=== PATIENT | female | born 1935 | race Caucasian/White ===

== ENCOUNTER 2017-05-30 13:39 | Inpatient (IN) ==
[2017-05-30 14:31] LABS: Apearance,Urine CLEAR (Clear); Bilirubin,Urine Negative (Negative); Blood, Urine Negative (Negative); Glucose,Urine (UA) Negative (Negative); Ketones,Urine Negative (Negative); Nitrite,Urine Negative (Negative); Protein,Urine Negative; RBC,Urine <1 /HPF (0-4); Squamous Epithelial Cell,Urine Occasional /HPF (0-10); Urine Color Straw (Yellow); Urine Specific Gravity 1.005 (1.001-1.035); Urine Urobilinogen < 2.0 EU/DL (0.2-1.0); WBC,Urine <1 /HPF (0-6)
[2017-05-30] MEDS ORDERED: HYDROmorphone 2 MG/1 ML VIAL IM STA (14:43)
[2017-05-30] MEDS ORDERED: ONDANSETRON 4 MG/2 ML VIAL IM STA (14:44)
--- NOTE | 2017-05-30 14:52 | Emergency Department Note ---
Arrival <Rylee Parsons - Last Filed: 05/30/17 18:38> - Arrival ED Nursing Triage Note: HX OF CHRONIC BACK PAIN-HAD MRI ON TUESDAY-STATES IS TO F /U WITH NEUROSURGEON-C/O PAIN TO LOWER BACK RADIATING DOWN RLE-STATES PAIN HAS WORSENED OVER LAST FEW DAYS Mode of Arrival: Stretcher Limitations: No Limitations Source: Patient, RN Notes Reviewed <Falguni Espinosa - Last Filed: 05/31/17 01:39> - Arrival Chief Complaint: Back Stated Complaint: BACK PAIN Time Seen by Provider: 05/30/17 14:02 - History of Present Illness HPI Narrative: -81-year-old white female presents to ED with CC of: back pain, x past few days for worsening pain. Has history of chronic back pain. Denies recent injury. Saw Dr. Armijo about 1 week ago. She had an MRI last , and is being referred to a neurosurgeon. Denies Incontinence, fever, saddle parasthesia. Denies Hx of AAA, Hx of Cancer, Immunosuppresion, IV drug use, prolonged use of corticosteroids, unexplained fever, unexplained weight loss, Sees Pain Treatment: no PCP: Dr. Armijo PMHx: HTN, CAD, pacemaker, hypothroidism, eye problems (Falguni Espinosa) Allergies/Adverse Reactions: Allergies Allergy/AdvReac Type Severity Reaction Status Date / Time simvastatin AdvReac Intermediate Muscle Pain Verified 03/21/17 08:50 Home Medications: Home Medications Medication Instructions Recorded Confirmed Type Aspirin [Ecotrin] 81 mg PO QAM 03/21/15 05/30/17 History Cranberry Conc/C/Bacill Coag 1 each PO QAM 03/21/15 05/30/17 History [Cranberry Tablet] Fish Oil/Dha/Epa [Fish Oil 1,200 1 each PO QAM 03/21/15 05/30/17 History mg Fish Oil] Flaxseed Oil 1,000 mg PO QAM 03/21/15 05/30/17 History Flecainide Acetate 50 mg PO Q12H 03/21/15 05/30/17 History Gabapentin 300 mg PO TID 03/21/15 05/30/17 History Gluc/Dwain-MSM#1/C/Mariano/Magdiel/Bor 1 each PO QAM 03/21/15 05/30/17 History [Osteo Bi-Flex Caplet] Hydralazine HCl 100 mg PO BID 03/21/15 05/30/17 History Levothyroxine Tab [Synthroid Tab] 50 mcg PO DAILY@0700 03/21/15 05/30/17 History Multivit-Min/FA/Lycopene/Lut 1 each PO QAM 03/21/15 05/30/17 History [Centrum Silver Tablet] Multivitamin (Ocuvite) [Ocuvite] 1 tablet PO QAM 03/21/15 05/30/17 History Torsemide 40 mg PO QAM 03/21/15 05/30/17 History cloNIDine TAB [Catapres Tab] 0.1 mg PO BEDTIME 03/21/15 05/30/17 History Latanoprost [Latanoprost 0.005 % 1 drop BOTH EYES BEDTIME 06/18/16 05/30/17 History Oph Soln] Loratadine Tab [Claritin Tab] 10 mg PO QAM PRN 06/18/16 05/30/17 History Potassium Chloride 10 meq PO BEDTIME 04/03/17 05/30/17 History Cyclobenzaprine [Flexeril] 10 mg PO TID PRN 05/30/17 05/30/17 History Glucosamine/D3/Boswellia Orquidea 1 each PO QAM 05/30/17 05/30/17 History [Osteo Bi-Flex Tablet] Hydrocodone/Acetaminophen [[place] 1 each PO Q4H PRN 05/30/17 05/30/17 History 10-325 Tablet] Pantoprazole Sodium 40 mg PO BEDTIME 05/30/17 05/30/17 History Review of System - Review of System 12 point system: reviewed and no additional remarkable complaints except as stated - Review of System Musculoskeletal: Present: as per HPI, lower back pain <Falguni Espinosa - Last Filed: 05/31/17 01:39> Medical,Surgical,& Family Hx - Medical History Cardio: History of: Cardiac Dysrhythmia (Takes Flecanide), CAD, Hypertension, Pacemaker (left), Cardiovascular Problems (Addiction Professional Dr. Mcintosh) Neurology: History of: Peripheral Neuropathy No history of: Seizures HEENT: History of: Eye Problem (Glasses; Increase Pressure in Eyes Trying to prevent Glaucoma), Dental Problems (Caps) No history of: Glaucoma Endocrine: History of: Thyroid Disorder Respiratory: History of: Asthma No history of: Pneumonia (Hx Pneum Vac), Respiratory Problems (Flu Vac 2016/ 2017 Season) Gastrointestinal: History of: Bowel Obstruction, Hemorrhoids, Polyps Musculoskeletal: History of: Back/Neck Problems, Musculoskeletal Problems ( Arthritis) Other: History of: Cancer (Skin Cancer), Skin Problems (Hx Skin cancers removed) No history of: Anesthesia Reactions - Surgical History Cardiac Surgeries: Sugical HX of: Cardiac Surgery (Pacemaker) HEENT Surgeries: Surgical HX of: Eye Surgery (cataract surgery, implants) Abdominal Surgeries: Surgical HX of: Appendectomy, Colonoscopy, EGD Reproductive Surgeries: Surgical HX of;: Hysterectomy (Complete) Patient denies;: Genitourinary Surgery Orthopedic Surgeries: Surgical HX of;: Spinal Surgery (Neck and Low Back Surgery ) - Family History Family History: Reports;: Family Cancer (mother father), Family Stroke (father) Comment Only: Family Heart Disease (mother father), Family Hypertension ( father) - Social History Smoking Status: Never smoker <Falguni Espinosa - Last Filed: 05/31/17 01:39> Exam <Rylee Parsons - Last Filed: 05/30/17 18:38> <Falguni Espinosa - Last Filed: 05/31/17 01:39> Physical Examination: General General appearance: alert, in no apparent distress - Head Head exam: Present: atraumatic, normocephalic - Eye Eye exam: Present: normal appearance, PERRL - Neck Neck exam: Present: normal inspection, full ROM - Chest Chest inspection: Present: normal inspection, symmetric chest wall rise - Respiratory Respiratory exam: Present: normal lung sounds bilaterally. Absent: accessory muscle use, rales, rhonchi, wheezes - Cardiovascular Cardiovascular exam: Present: regular rate, normal rhythm, normal heart sounds - Abdominal Exam Abdominal exam: Present: soft, normal bowel sounds. Absent: masses, tenderness - Extremities Exam Extremities exam: Present: normal inspection, bilateral lower extremeties limited ROM due to pain, normal capillary refill. Absent: pedal edema, joint swelling, tenderness - Back Exam Back exam: Present: normal inspection, tenderness lumbar area, paraspinal tenderness on R, positive straight leg raise R/L - Neurological Exam Neurological exam: Present: alert, oriented X3, 4/5 strength in legs, bilaterally, sensation to light touch present in legs bilaterally, DTR's 2+ bilaterally (Falguni Espinosa) Vital Signs: Vital Signs Temperature 96.8 F L 05/30/17 19:30 Pulse Rate 65 05/30/17 23:00 Respiratory Rate 10 L 05/31/17 00:56 Blood Pressure 113/33 05/30/17 23:00 O2 Sat by Pulse Oximetry 100 05/30/17 23:00 Course <Rylee Parsons - Last Filed: 05/30/17 18:38> <Falguni Espinosa - Last Filed: 05/31/17 01:39> Course Narrative: 1430: Nurse asked to call Dr. Armijo's office for current status of appt. with neurosurgeon. They have not sent information yet, so no appointment has been made. 1440: MRI results in computer that were done last week: Impression: 1. Levoscoliotic curve present. 2. Degenerative marrow signal changes 3. Multilevel degenerative disc disease. Component of spinal canal stenosis present the L4-5 level with associated bulging disc and facet arthropathy 4. Facet arthropathy and some distortion of the thecal sac and narrowing at the L2-3 level 5. Bulging and/or protrusion with extrusion at L1-2 of disc and extension of protrusion posterior to the L2 vertebral body with resultant spinal canal stenosis present. 6. Disc desiccation throughout the lumbosacral spine. 7. Multiple cysts present within the kidneys Due to severity of patient's disease, will attempt IM analgesic and steroid and hopefully get her comfortable enough to discharge home until she can see neurosurgeon. [employer] search reveals that she has prescription for [place] written by Dr. Armijo last week. She stated during history and physical that she was not getting much relief from that. 1530: In room to check on patient. Awake, alert, oriented. Patient states the pain shot has not helped. Friend at bedside. Patient and friend requesting possible admission to hospital or transfer to [facility]. Spoke to hospitalist, who was in unit, about patient and possibility of admission. Will reevaluate, but anticipate contacting B for possible transfer if she still feels she cannot return home. 1558: horse stud worker into room for evaluation of patient home situation. She immediately requested assistance. 1600: Went into room and found patient pulseless and apneic. Friend, still at bedside, states "I thought she was just asleep." Code called and CPR started. See Code Record for specifics. Patient transferred to main ER for further stabilization and treatment under care of Dr. Parsons. (Falguni Espinosa) - Reevaluation(s) Reevaluation #1: spoke with hospitalist who will see pt and admit to icu. was called to nonurgent (Rylee Parsons) Results - Labs CBC & BMP: 05/30/17 16:15 05/30/17 16:15 Lab Results: I have reviewed the patients labs <Rylee Parsons - Last Filed: 05/30/17 18:38> - Labs CBC & BMP: 05/30/17 16:15 05/30/17 16:15 <Falguni Espinosa - Last Filed: 05/31/17 01:39> Disposition <Rylee Parsons - Last Filed: 05/30/17 18:38> Time of Disposition: 16:10 (To main ER) <Falguni Espinosa - Last Filed: 05/31/17 01:39> Clinical Impression: Cardiac arrest Disposition: Still a Patient
[2017-05-30] MEDS ORDERED: HYDROmorphone 2 MG/1 ML VIAL ONE (15:00)
[2017-05-30] MEDS ORDERED: ONDANSETRON 4 MG/2 ML VIAL ONE (15:00)
[2017-05-30] MEDS ORDERED: DEXAMETHASONE 4 MG/1 ML VIAL IM STA (15:03)
[2017-05-30] MEDS ORDERED: methylPREDNISolone ACETATE 40 MG/1 ML VIAL IM STA (15:03)
[2017-05-30] MEDS ORDERED: methylPREDNISolone ACETATE 40 MG/1 ML VIAL ONE (15:07)
[2017-05-30] MEDS ORDERED: DEXAMETHASONE 4 MG/1 ML VIAL ONE (15:07)
[2017-05-30] MEDS ORDERED: NALOXONE 0.4 MG/ML VIAL ONE (16:00)
[2017-05-30] MEDS ORDERED: EPINEPHrine 1 MG/ML VIAL ONE (16:00)
[2017-05-30 16:31] LABS: Basophils # 0.1 10*3/uL (0.0-0.2); Basophils % 0.6 % (0.0-0.8); Eosinophils # 0.2 10*3/uL (0.0-0.87); Eosinophils % 1.4 % (0.00-10.9); Hematocrit 41.8 VOL% (35.7-47.0); Hemoglobin 13.7 GM/DL (12.0-16.0); Immature Granulocytes % 2.2 %; Immature Granulocytes Absolute 0.32 #; Lymphocytes # 8.5 10*3/uL (1.4-4.0); Lymphocytes % 59.2 % (21.3-54.2); Mean Corpuscular HGB Conc 32.8 GM/DL (32-36); Mean Corpuscular Hemoglobin 32 PG (27-34); Mean Corpuscular Volume 96.1 FL (87-102); Mean Platelet Volume 10.6 FL (9.6-12.0); Monocytes # 0.8 10*3/uL (0.11-0.8); Monocytes % 5.2 % (1.7-12.7); NRBC # 0.04 10*3/uL; Neutrophils # 4.5 10*3/uL (1.4-7.4); Neutrophils % 31.4 % (38.7-73.9); Platelet Count 217 T/CUMM (130-400); Red Blood Count 4.35 MC/CUMM (3.8-5.5); Red Cell Distribution Width 13.7 % (9.3-17.3); White Blood Count 14.3 T/CUMM (4-12)
[2017-05-30 16:32] LABS: Apearance,Urine CLEAR (Clear); Bilirubin,Urine Negative (Negative); Blood, Urine Negative (Negative); Glucose,Urine (UA) Negative (Negative); Hyaline Casts,Urine 1 /LPF (0-3); Ketones,Urine Negative (Negative); Nitrite,Urine Negative (Negative); Protein,Urine Negative; RBC,Urine <1 /HPF (0-4); Urine Color Straw (Yellow); Urine Specific Gravity 1.004 (1.001-1.035); Urine Urobilinogen < 2.0 EU/DL (0.2-1.0)
[2017-05-30 16:39] LABS: D-Dimer 2.2 MG/L FEU; INR 1.1; PT Patient Result 11.5 SECS; Partial Thromboplastin Time 27.7 SECS (0-40)
[2017-05-30 16:52] LABS: Alanine Aminotransferase 370 U/L (13-56); Albumin 3.5 G/DL (3.4-5.0); Alkaline Phosphatase 64 U/L (45-117); Aspartate Amino Transferase 406 U/L (0-37); Blood Urea Nitrogen 32 MG/DL (7-18); Calcium 9.2 MG/DL (8.5-10.1); Glucose 166 MG/DL (74-106); Osmolality,Calculated 289.4 MOS/KG (273-304); Potassium 3.5 MMOL/L (3.5-5.1); Sodium 140 MMOL/L (136-145); Total Protein 7.2 G/DL (6.4-8.3)
[2017-05-30 16:53] LABS: Troponin I Only 0.223 NG/ML (0.00-0.045)
--- NOTE | 2017-05-30 16:54 | CT Report ---
History: Cardiac arrest Date: 05/30/2017 Study: CT chest with pulmonary embolus technique Comparison exam: No previous similar Spiral CT sections were obtained through the lungs following the IV administration of 80 mL of Omnipaque 350 without immediate complication. Multiplanar reconstruction images are also evaluated. The CT exam was performed using one or more of the following dose reduction techniques: Automated exposure control, adjustment of the mA and/or kV according to patient size, or use of iterative reconstruction technique. There is no discrete filling defect within the pulmonary arterial tree to suggest acute pulmonary embolic disease. There is no pericardial or pleural effusion. There is no obvious mediastinal mass or mediastinal lymphadenopathy. A left subclavian transvenous pacemaker with multiple leads is in place, generally intact and generally well positioned. There is some mild dependent atelectasis in the lungs. There is some minimal hazy left lower lobe infiltrate/edema. The endotracheal tube is well-positioned with its tip superior to the sony. There is no obvious acute abnormality of the upper abdomen. There is mild to moderate thoracic spondylosis. Impression: No evidence of acute pulmonary embolic disease. Mild hazy left lower lobe edema/infiltrate PROCEDURE INTERPRETED AT [facility] DEPARTMENT OF RADIOLOGY Final Report Signed by: Dr. Yvonne Hamilton
[2017-05-30] MEDS ORDERED: SODIUM CHLORIDE 0.9% 1,000 ML IV STA (16:56)
[2017-05-30 17:29] LABS: Free T4 (Free Thyroxine) 1.49 NG/DL (0.76-1.46); Thyroid Stimulating Hormone 9.49 uIU/ml (0.358-3.74)
[2017-05-30 17:31] LABS: Eosinophils 1 % (0-10); Lymphocytes 62 % (20-55); Nucleated Red Blood Cells 1 (0-5); Platelet Estimate Normal; Segmented Neutrophils 33 % (50-85); Total Cells Counted 100
[2017-05-30] MEDS ORDERED: LEVOFLOXACIN INJ 500 MG in PREMIX 1 EACH IV STA (17:36)
[2017-05-30] MEDS ORDERED: LEVOFLOXACIN INJ 150 ML IV ONE (17:54)
[2017-05-30] MEDS ORDERED: LEVOFLOXACIN INJ 0 ML IV ONE (18:01)
[2017-05-30] MEDS ORDERED: ALBUTEROL 2.5 MG/3 ML NEB RESP TX PRN (19:10)
[2017-05-30] MEDS ORDERED: ONDANSETRON 4 MG/2 ML VIAL IV PRN (19:10)
[2017-05-30] MEDS: PANTOPRAZOLE 40 MG VIAL IV SCH (19:48)
[2017-05-30] MEDS: ENOXAPARIN 30 MG/0.3 ML SYRINGE SUBCUT SCH (19:48)
--- NOTE | 2017-05-30 19:48 | Hospitalist History & Physical ---
Assessment and Plan (1) Status post code Status: Acute Current Visit: Yes (2) Respiratory arrest Status: Acute Current Visit: Yes (3) Thyroid disorder Status: Acute Current Visit: Yes (4) Chronic back pain Status: Acute Current Visit: Yes (5) Cardiac arrest Status: Acute Assessment and plan: Patient is status post cardiac pulmonary arrest. I suspect respiratory arrest preceded cardiac arrest. She is not making any spontaneous movements. My concern is that we has significant brain damage. We will consult both pulmonary in cardiology for this patient. I am going to trend cardiac enzymes. I have ordered a CT scan of her head without contrast. Going to put her on antibiotics for a pneumonia. Will reevaluate patient in the morning and adjust plans appropriate Current Visit: Yes History of Present Illness Chief complaint: Status post code History of present illness: Ms. Regalado is a 81 year old female with past medical history significant for pacemaker placement, thyroid disorder and possible chronic kidney disease who was in her normal state of health until approximately 1 month ago. For the past month patient's been dealing with bad excruciating back pain. She sees Dr. Armijo in clinic. She reportedly had an MRI last week. She was going to have a appointment set up with neurosurgery in [place]. She came in today with intractable back pain. She has been having trouble with the least amount of movement. She was triaged to fast track. Patient received some steroids and pain medicine. It seemed like she was resting. But when they checked on her social services manager it was noted that she was not breathing. A code was called. Patient was given to rounds of epi and some Narcan. She was pulseless and breathless. A pulse returned after treatment. She was coded approximately 15 minutes. She has made no spontaneous movement since then. And she does not withdraw from pain. I was consulted to admit her. Home Medications Medication Instructions Recorded Confirmed Type Aspirin [Ecotrin] 81 mg PO QAM 03/21/15 05/30/17 History Cranberry Conc/C/Bacill Coag 1 each PO QAM 03/21/15 05/30/17 History [Cranberry Tablet] Fish Oil/Dha/Epa [Fish Oil 1,200 1 each PO QAM 03/21/15 05/30/17 History mg Fish Oil] Flaxseed Oil 1,000 mg PO QAM 03/21/15 05/30/17 History Flecainide Acetate 50 mg PO Q12H 03/21/15 05/30/17 History Gabapentin 300 mg PO TID 03/21/15 05/30/17 History Gluc/Dwain-MSM#1/C/Mariano/Magdiel/Bor 1 each PO QAM 03/21/15 05/30/17 History [Osteo Bi-Flex Caplet] Hydralazine HCl 100 mg PO BID 03/21/15 05/30/17 History Levothyroxine Tab [Synthroid Tab] 50 mcg PO DAILY@0700 03/21/15 05/30/17 History Multivit-Min/FA/Lycopene/Lut 1 each PO QAM 03/21/15 05/30/17 History [Centrum Silver Tablet] Multivitamin (Ocuvite) [Ocuvite] 1 tablet PO QAM 03/21/15 05/30/17 History Torsemide 40 mg PO QAM 03/21/15 05/30/17 History cloNIDine TAB [Catapres Tab] 0.1 mg PO BEDTIME 03/21/15 05/30/17 History Latanoprost [Latanoprost 0.005 % 1 drop BOTH EYES BEDTIME 06/18/16 05/30/17 History Oph Soln] Loratadine Tab [Claritin Tab] 10 mg PO QAM PRN 06/18/16 05/30/17 History Potassium Chloride 10 meq PO BEDTIME 04/03/17 05/30/17 History Cyclobenzaprine [Flexeril] 10 mg PO TID PRN 05/30/17 05/30/17 History Glucosamine/D3/Boswellia Orquidea 1 each PO QAM 05/30/17 05/30/17 History [Osteo Bi-Flex Tablet] Hydrocodone/Acetaminophen [[place] 1 each PO Q4H PRN 05/30/17 05/30/17 History 10-325 Tablet] Pantoprazole Sodium 40 mg PO BEDTIME 05/30/17 05/30/17 History Allergies Allergy/AdvReac Type Severity Reaction Status Date / Time simvastatin AdvReac Intermediate Muscle Pain Verified 03/21/17 08:50 Medical,Surgical,& Family Hx - Medical History Cardio: History of: Cardiac Dysrhythmia (Takes Flecanide), CAD, Hypertension, Pacemaker (left), Cardiovascular Problems (Fruit Bar Maker Dr. Mcintosh) Neurology: History of: Peripheral Neuropathy No history of: Seizures HEENT: History of: Eye Problem (Glasses; Increase Pressure in Eyes Trying to prevent Glaucoma), Dental Problems (Caps) No history of: Glaucoma Endocrine: History of: Thyroid Disorder Respiratory: History of: Asthma No history of: Pneumonia (Hx Pneum Vac), Respiratory Problems (Flu Vac 2016/ 2016 Season) Gastrointestinal: History of: Bowel Obstruction, Hemorrhoids, Polyps Musculoskeletal: History of: Back/Neck Problems, Musculoskeletal Problems ( Arthritis) Other: History of: Cancer (Skin Cancer), Skin Problems (Hx Skin cancers removed) No history of: Anesthesia Reactions - Surgical History Cardiac Surgeries: Sugical HX of: Cardiac Surgery (Pacemaker) HEENT Surgeries: Surgical HX of: Eye Surgery (cataract surgery, implants) Abdominal Surgeries: Surgical HX of: Appendectomy, Colonoscopy, EGD Reproductive Surgeries: Surgical HX of;: Hysterectomy (Complete) Patient denies;: Genitourinary Surgery Orthopedic Surgeries: Surgical HX of;: Spinal Surgery (Neck and Low Back Surgery ) - Family History Family History: Reports;: Family Cancer (mother father), Family Stroke (father) Comment Only: Family Heart Disease (mother father), Family Hypertension ( father) - Social History Smoking Status: Never smoker Frequency of Alcohol Use: None Type of Drug Use: None ROS unobtainable: due to endotracheal tube Exam - Constitutional Vitals: Period Temp Pulse Resp BP Sys/Hoff Pulse Ox Last 24 Hr 98.3 F 68 12-20 165/59 96 General appearance: normal weight - Head Head exam: Present: normal inspection - Eye Pupils: Present: JULIO C (Sluggish) - ENT ENT exam: Present: other (ET tube in place) - Neck Neck exam: Present: normal inspection - Respiratory Respiratory exam: Present: clear to auscultation bilaterally - Cardiovascular Cardiovascular exam: Present: regular rate and rhythm - GI/Abdominal GI/Abdominal exam: Present: normal bowel sounds - Extremities Exam Extremities exam: Present: normal inspection - Back Exam Back exam: Present: normal inspection Results - Labs CBC & BMP: 05/30/17 16:15 05/30/17 16:15
[2017-05-30] MEDS: hydrALAZINE 20 MG/1 ML VIAL IV PRN (19:49)
--- NOTE | 2017-05-30 19:50 | EKG Report ---
Stationary ECG Study [facility] ER Test Date: 05/30/2017 4:23:41 PM Pat Name: VASILE MOORE Department: Room: 115 Gender: F Director Of Audiology: : 1935 Requested by: Rylee Parsons Order Number: [id number] Lakisha MD: ALEJANDRO CABRERA Intervals [place] Rate: 95 P: 999 MD: 0 QRS: -81 QRSD: 187 T: 44 QT: 465 QTc: 518 Interpretive Statements ELECTRONIC VENTRICULAR PACEMAKER Electronically Signed On 06-03-17 15:28:52 CDT by ALEJANDRO CABRERA [email or web address]
[2017-05-30] MEDS: SODIUM CHLORIDE 0.9% 1,000 ML IV SCH (19:51)
[2017-05-30 20:06] LABS: ABG Base Excess 1.2 MMOL/L (-2.5-2.5); ABG HCO3 22.2 MMOL/L (20-26); ABG Oxygen Saturation 99.1 % (95-100); ABG PCO2 25.7 MM HG (35-48); ABG PH 7.555 (7.35-7.45); ABG PO2 246.8 MM HG (80-95); Allen Test Positive; Pt O2 Delivery Device Ventilator
[2017-05-30] MEDS: cefTRIAXone 1,000 MG in SODIUM CHLORIDE 0.9% 100 ML IV SCH (20:15)
[2017-05-30] MEDS: AZITHROMYCIN INJ 500 MG in SODIUM CHLORIDE 0.9% 250 ML IV SCH (20:19)
[2017-05-30] MEDS ORDERED: LORazepam 2 MG/1 ML VIAL IV ONE (21:21)
[2017-05-31] MEDS: LORazepam 2 MG/1 ML VIAL IV PRN ×5 (00:14→07:48)
[2017-05-31 03:10] LABS: Allen Test Positive; Pt O2 Delivery Device Ventilator
[2017-05-31 03:11] LABS: ABG Base Excess -1.1 MMOL/L (-2.5-2.5); ABG HCO3 22.6 MMOL/L (20-26); ABG Oxygen Saturation 98.4 % (95-100); ABG PCO2 34.8 MM HG (35-48); ABG PH 7.431 (7.35-7.45); ABG PO2 142.2 MM HG (80-95); ABG TCO2 23.7 MMOL/L (23-27)
[2017-05-31 04:31] LABS: Albumin 3.2 G/DL (3.4-5.0); Bilirubin,Total 1.3 MG/DL (0.2-1.0); Calcium 8.8 MG/DL (8.5-10.1); Potassium 4.1 MMOL/L (3.5-5.1); Total Protein 6.5 G/DL (6.4-8.3)
[2017-05-31 04:32] LABS: Basophils % 0.1 % (0.0-0.8); Hematocrit 37.8 VOL% (35.7-47.0); Hemoglobin 12.4 GM/DL (12.0-16.0); Immature Granulocytes % 1.2 %; Immature Granulocytes Absolute 0.28 #; Lymphocytes # 0.5 10*3/uL (1.4-4.0); Mean Corpuscular HGB Conc 32.8 GM/DL (32-36); Mean Corpuscular Hemoglobin 32 PG (27-34); Mean Corpuscular Volume 96.4 FL (87-102); Mean Platelet Volume 10.7 FL (9.6-12.0); Monocytes % 4.3 % (1.7-12.7); Neutrophils # 20.8 10*3/uL (1.4-7.4); Neutrophils % 92.4 % (38.7-73.9); Platelet Count 185 T/CUMM (130-400); Red Blood Count 3.92 MC/CUMM (3.8-5.5); White Blood Count 22.5 T/CUMM (4-12)
[2017-05-31 05:43] LABS: Lymphocytes 2 % (20-55); Platelet Estimate Adequate; Segmented Neutrophils 94 % (50-85); Total Cells Counted 100
[2017-05-31] MEDS: SODIUM CHLORIDE 0.9% 1,000 ML IV SCH ×2 (06:38→17:06)
--- NOTE | 2017-05-31 06:42 | CT Report ---
History is unresponsive Comparison 04/16/2013 There is mild ventricular prominence out of proportion to the amount of atrophy There are mild patchy white matter low densities present without acute intracranial hemorrhage or mass effects seen No acute cortical stroke identified. Small calcifications in the left elkin are similar on the prior study. Impression: 1. Mild interval progression of ventricular prominence out of proportion to the amount of atrophy. Central atrophy versus NPH 2. mild patchy nonspecific white matter low densities most frequently associated with sequelae of microvascular disease The CT exam was performed using one or more of the following dose reduction techniques: Automated exposure control, adjustment of the mA and/or kV according to patient size, or use of iterative reconstruction technique. PROCEDURE INTERPRETED AT [facility] DEPARTMENT OF RADIOLOGY Final Report Signed by: Dr. Barb Martinez
--- NOTE | 2017-05-31 07:35 | XRay Report ---
History is ventilator management Comparison 05/20/1705/30/2017 The ET tube tip is at T4. Pacemaker present with mild cardiomegaly. There has been development of mildly increasing consolidation with a component of volume loss in the retrocardiac left lung base Right lung is clear Impression: Worsening left lower lobe consolidation primarily felt to be atelectasis. PROCEDURE INTERPRETED AT [facility] DEPARTMENT OF RADIOLOGY Final Report Signed by: Dr. Barb Martinez
--- NOTE | 2017-05-31 09:27 | Cardiology Consult Note ---
<Patti Carpio E - Last Filed: 05/31/17 08:59> Assessment and Plan - Time spent with patient Time spent with patient: Greater than 30 minutes (1) PAF (paroxysmal atrial fibrillation) Status: Chronic Assessment and plan: SEE PLAN OF CARE LISTED BELOW Current Visit: Yes (2) CKD (chronic kidney disease) stage 4, GFR 15-29 ml/min Status: Chronic Assessment and plan: SEE PLAN OF CARE LISTED BELOW Current Visit: Yes (3) Pacemaker Status: Chronic Assessment and plan: SEE PLAN OF CARE LISTED BELOW Current Visit: Yes (4) Dyslipidemia Status: Chronic Assessment and plan: SEE PLAN OF CARE LISTED BELOW Current Visit: Yes (5) Hypertension Status: Chronic Assessment and plan: SEE PLAN OF CARE LISTED BELOW Current Visit: Yes (6) Cardiac arrest Status: Acute Assessment and plan: SEE PLAN OF CARE LISTED BELOW Current Visit: Yes (7) Status post code Status: Acute Assessment and plan: SEE PLAN OF CARE LISTED BELOW Current Visit: Yes (8) Respiratory arrest Status: Acute Assessment and plan: SEE PLAN OF CARE LISTED BELOW Current Visit: Yes (9) Thyroid disorder Status: Acute Current Visit: Yes (10) Chronic back pain Status: Chronic Assessment and plan: SEE PLAN OF CARE LISTED BELOW Current Visit: Yes History of Present Illness - Data of Consult Patient: known to practice within the last 3 years Consult date: 05/31/17 Requesting Physician: Dougie Hood - Consult Narrative Reason for consult: respiratory/cardiac arrest History of present illness: MICRO PHOTOGRAPHER: DR. MCINTOSH Patient is being seen in the ICU. Patient is intubated and unresponsive, there is no family at the bedside. The majority of this information is taken from medical records and staff. Ms. Regalado, 81WF, routinely followed by Dr. Mcintosh. She was last seen in cardiology clinic April 05, 2017. Risk factors include: age,, hypertension, dyslipidemia, sedentary lifestyle. History of sick sinus syndrome now S/P [employer] PPM August 15, [address] Anand. History of PAF for which she takes Flecainide for rhythm control, ECASA for stroke prevention. Lexiscan cardiac stress test June 29, 2016: EF 62%, low risk scan. Apparently, patient sought medical advice for excruciating back pain. After receiving sedation, she experienced a suspected respiratory arrest preceding cardiac arrest. She was noted to be pulseless and breathless, CPR and ACLS started immediately. She was coded approximately 15 minutes. A pulse returned. There has been no spontaneous movements however she appears to be having seizures. After receiving she was transitioned to the ICU. CT chest reveals mild, hazy left lower lobe edema versus infiltrate. CT head reveals no acute stroke. EKG does not reveal STEMI. Troponin elevated at 0.2-3-1.08, expected after a wrist requiring CPR. We will continue to trend these, following EKG. Echocardiogram has been ordered. EEG ordered, neurology consulted. No arrhythmia has been noted on telemetry. Will further discuss with Dr. Edmonds and await additional recommendations. ASSESSMENT/PLAN: 1. RESPIRATORY/CARDIAC ARREST - continue current plan of care 2. ANOXIC BRAIN INJURY - Neurology has been consulted 3. POSSIBLE SEIZURES - awaiting input from Neuro. 4. ELEVATED TROPONIN - not unexpected after events. Expect to increase throughout the hospitalization. Also, given CKD, may be contributing to elevation. Not a candidate for invasive work-up given the neurological condition. Should patient's neurological status improve, may consider further work-up. Echo ordered. 5. PAF - NSR during stay. On Flecanide. LFTs increasing. May consider holding Flecanide if LFTs continue to increase. 6. UNDERLYING HYPERTENSION - will incorporate meds as able. CC: Digna Burgos MD - Home Medications and Allergies Home Medications: Home Medications Medication Instructions Recorded Confirmed Type Aspirin [Ecotrin] 81 mg PO QAM 03/21/15 05/30/17 History Cranberry Conc/C/Bacill Coag 1 each PO QAM 03/21/15 05/30/17 History [Cranberry Tablet] Fish Oil/Dha/Epa [Fish Oil 1,200 1 each PO QAM 03/21/15 05/30/17 History mg Fish Oil] Flaxseed Oil 1,000 mg PO QAM 03/21/15 05/30/17 History Flecainide Acetate 50 mg PO Q12H 03/21/15 05/30/17 History Gabapentin 300 mg PO TID 03/21/15 05/30/17 History Gluc/Dwain-MSM#1/C/Mariano/Magdiel/Bor 1 each PO QAM 03/21/15 05/30/17 History [Osteo Bi-Flex Caplet] Hydralazine HCl 100 mg PO BID 03/21/15 05/30/17 History Levothyroxine Tab [Synthroid Tab] 50 mcg PO DAILY@0700 03/21/15 05/30/17 History Multivit-Min/FA/Lycopene/Lut 1 each PO QAM 03/21/15 05/30/17 History [Centrum Silver Tablet] Multivitamin (Ocuvite) [Ocuvite] 1 tablet PO QAM 03/21/15 05/30/17 History Torsemide 40 mg PO QAM 03/21/15 05/30/17 History cloNIDine TAB [Catapres Tab] 0.1 mg PO BEDTIME 03/21/15 05/30/17 History Latanoprost [Latanoprost 0.005 % 1 drop BOTH EYES BEDTIME 06/18/16 05/30/17 History Oph Soln] Loratadine Tab [Claritin Tab] 10 mg PO QAM PRN 06/18/16 05/30/17 History Potassium Chloride 10 meq PO BEDTIME 04/03/17 05/30/17 History Cyclobenzaprine [Flexeril] 10 mg PO TID PRN 05/30/17 05/30/17 History Glucosamine/D3/Boswellia Orquidea 1 each PO QAM 05/30/17 05/30/17 History [Osteo Bi-Flex Tablet] Hydrocodone/Acetaminophen [Alleene 1 each PO Q4H PRN 05/30/17 05/30/17 History 10-325 Tablet] Pantoprazole Sodium 40 mg PO BEDTIME 05/30/17 05/30/17 History Allergies/Adverse Reactions: Allergies Allergy/AdvReac Type Severity Reaction Status Date / Time simvastatin AdvReac Intermediate Muscle Pain Verified 03/21/17 08:50 ROS unobtainable: due to endotracheal tube, due to mental status Medical,Surgical,& Family Hx - Medical History Cardio: History of: Cardiac Dysrhythmia (Takes Flecanide), Hypertension, Pacemaker (left), Cardiovascular Problems (Music Manager Dr. Mcintosh) Neurology: History of: Peripheral Neuropathy No history of: Seizures HEENT: History of: Eye Problem (Glasses; Increase Pressure in Eyes Trying to prevent Glaucoma), Dental Problems (Caps) No history of: Glaucoma Endocrine: History of: Thyroid Disorder Respiratory: History of: Asthma No history of: Pneumonia (Hx Pneum Vac), Respiratory Problems (Flu Vac 2016/ 2017 Season) Gastrointestinal: History of: Bowel Obstruction, Hemorrhoids, Polyps Musculoskeletal: History of: Back/Neck Problems, Musculoskeletal Problems ( Arthritis) Other: History of: Cancer (Skin Cancer), Skin Problems (Hx Skin cancers removed) No history of: Anesthesia Reactions - Surgical History Cardiac Surgeries: Sugical HX of: Cardiac Surgery (Pacemaker) HEENT Surgeries: Surgical HX of: Eye Surgery (cataract surgery, implants) Abdominal Surgeries: Surgical HX of: Appendectomy, Colonoscopy, EGD Reproductive Surgeries: Surgical HX of;: Hysterectomy (Complete) Patient denies;: Genitourinary Surgery Orthopedic Surgeries: Surgical HX of;: Spinal Surgery (Neck and Low Back Surgery ) - Family History Family History: Reports;: Family Cancer (mother father), Family Stroke (father) Comment Only: Family Heart Disease (mother father), Family Hypertension ( father) - Social History Smoking Status: Never smoker Frequency of Alcohol Use: None Type of Drug Use: None Physical Examination Vital Signs Temp Pulse Resp BP Pulse Ox 98.3 F 68 20 165/59 96 05/30/17 13:39 05/30/17 13:39 05/30/17 13:39 05/30/17 13:39 05/30/17 13:39 General: [Intubated without purposeful movement ] [Appears comfortable.] HEENT: [Normocephalic, atraumatic. Mucous membranes moist. No jaundice noted. Conjunctiva moist and clear, sclerae anicteric] Neck: No obvious JVD/HJR, no thyromegaly or lymphadenopathy noted. Cardiac: [Regular rate and rhythm.] [No obvious murmur rub or gallop.] Lungs: [Coarse sounds throughout without accessory muscle use to assist the respiratory pattern.] Symmetrical chest wall movements noted Abdomen: Soft, bowel sounds hypoactive. Nondistended. No abdominal bruit or thrill noted. No masses noted. Musculoskeletal: No fluid collection. Decreased range of motion is noted. Extremities: No clubbing, cyanosis noted. [ No edema noted.] Upper extremity pulses 2+. Lower extremity pulses 2+. Capillary refill less than 3 seconds. Skin: No unusual lesions or rashes. No skin breakdown appreciated. Neuro: Does not respond to aggressive stimuli. Seizure-like activity noted. Result/EKG - Labs CBC & BMP: 05/31/17 03:23 05/31/17 03:23 Lab Results: I have reviewed the past 24 hour labs Labs: Laboratory Results - last 24 hr 05/30/17 05/30/17 05/30/17 14:06 16:15 16:15 WBC 14.3 H RBC 4.35 Hgb 13.7 Hct 41.8 MCV 96.1 MCH 32 MCHC 32.8 RDW 13.7 Plt Count 217 MPV 10.6 Neut % (Auto) 31.4 L Lymph % (Auto) 59.[address] [place] % (Auto) 5.2 Eos % (Auto) 1.4 Baso % (Auto) 0.6 Neut # (Auto) 4.5 Lymph # (Auto) 8.[address] [place] # (Auto) 0.8 Eos # (Auto) 0.2 Baso # (Auto) 0.1 Total Counted 100 Immature Gran % 2.2 Nucleated RBC % 0.3 Immature Gran # 0.32 Segmented Neutrophils 33 L Lymphocytes 62 H Monocytes 4 Eosinophils 1 Nucleated RBCs 1 Nucleated RBCs # 0.04 Platelet Estimate Normal Pappenheimer Bodies Morphology Comment INR 1.1 PT Patient/Control Mix 11.5 D-Dimer, Quantitative 2.2 Circ Anticoag PTT 27.7 ABG pH ABG pCO2 ABG pO2 ABG HCO3 ABG Total CO2 ABG O2 Saturation ABG Base Excess FiO2 Sodium Potassium Chloride Carbon Dioxide Anion Gap BUN Creatinine GFR Calculation BUN/Creatinine Ratio Glucose Calculated Osmolality Calcium Total Bilirubin AST ALT Alkaline Phosphatase Total Creatine Kinase CK-MB (CK-2) Troponin I B-Natriuretic Peptide Total Protein Albumin Globulin Albumin/Globulin Ratio Free T4 TSH 3rd Generation Urine Color Straw Urine Appearance Clear Urine pH 7.0 Ur Specific [place] 1.005 Urine Protein Negative Urine Glucose (UA) Negative Urine Ketones Negative Urine Blood Negative Urine Nitrate Negative Urine Bilirubin Negative Urine Urobilinogen < 2.0 H Urine Leukocytes Negative Urine RBC <1 Urine WBC <1 Ur Squamous Epith Cells Occasional Hyaline Casts Ur Culture Indicated? Not indicated 05/30/17 05/30/17 05/30/17 16:15 16:15 16:15 WBC RBC Hgb Hct MCV MCH MCHC RDW Plt Count MPV Neut % (Auto) Lymph % (Auto) [place] % (Auto) Eos % (Auto) Baso % (Auto) Neut # (Auto) Lymph # (Auto) [place] # (Auto) Eos # (Auto) Baso # (Auto) Total Counted Immature Gran % Nucleated RBC % Immature Gran # Segmented Neutrophils Lymphocytes Monocytes Eosinophils Nucleated RBCs Nucleated RBCs # Platelet Estimate Pappenheimer Bodies Morphology Comment INR PT Patient/Control Mix D-Dimer, Quantitative Circ Anticoag PTT ABG pH ABG pCO2 ABG pO2 ABG HCO3 ABG Total CO2 ABG O2 Saturation ABG Base Excess FiO2 Sodium 140 Potassium 3.5 Chloride 101 Carbon Dioxide 25 Anion Gap 17.5 H BUN 32 H Creatinine 2.40 H GFR Calculation 0 BUN/Creatinine Ratio 13.00 Glucose 166 H Calculated Osmolality 289.4 Calcium 9.2 Total Bilirubin 0.40 AST 406 H ALT 370 H Alkaline Phosphatase 64 Total Creatine Kinase 125 CK-MB (CK-2) 1.3 Troponin I 0.223 H B-Natriuretic Peptide 70 Total Protein 7.2 Albumin 3.5 Globulin 3.7 H Albumin/Globulin Ratio 0.9 L Free T4 1.49 H TSH 3rd Generation 9.490 H Urine Color Urine Appearance Urine pH Ur Specific [place] Urine Protein Urine Glucose (UA) Urine Ketones Urine Blood Urine Nitrate Urine Bilirubin Urine Urobilinogen Urine Leukocytes Urine RBC Urine WBC Ur Squamous Epith Cells Hyaline Casts Ur Culture Indicated? 05/30/17 05/30/17 05/31/17 16:23 20:00 01:58 WBC RBC Hgb Hct MCV MCH MCHC RDW Plt Count MPV Neut % (Auto) Lymph % (Auto) [place] % (Auto) Eos % (Auto) Baso % (Auto) Neut # (Auto) Lymph # (Auto) [place] # (Auto) Eos # (Auto) Baso # (Auto) Total Counted Immature Gran % Nucleated RBC % Immature Gran # Segmented Neutrophils Lymphocytes Monocytes Eosinophils Nucleated RBCs Nucleated RBCs # Platelet Estimate Pappenheimer Bodies Morphology Comment INR PT Patient/Control Mix D-Dimer, Quantitative Circ Anticoag PTT ABG pH 7.555 H ABG pCO2 25.7 L ABG pO2 246.8 H ABG HCO3 22.2 ABG Total CO2 23.0 ABG O2 Saturation 99.1 ABG Base Excess 1.2 FiO2 70.00 Sodium Potassium Chloride Carbon Dioxide Anion Gap BUN Creatinine GFR Calculation BUN/Creatinine Ratio Glucose Calculated Osmolality Calcium Total Bilirubin AST ALT Alkaline Phosphatase Total Creatine Kinase 177 D CK-MB (CK-2) 3.8 H Troponin I 1.080 H D B-Natriuretic Peptide Total Protein Albumin Globulin Albumin/Globulin Ratio Free T4 TSH 3rd Generation Urine Color Straw Urine Appearance Clear Urine pH 7.0 Ur Specific [place] 1.004 Urine Protein Negative Urine Glucose (UA) Negative Urine Ketones Negative Urine Blood Negative Urine Nitrate Negative Urine Bilirubin Negative Urine Urobilinogen < 2.0 H Urine Leukocytes Negative Urine RBC <1 Urine WBC Ur Squamous Epith Cells Hyaline Casts 1 Ur Culture Indicated? Not indicated 05/31/17 05/31/17 05/31/17 03:00 03:23 03:23 WBC 22.5 H D RBC 3.92 Hgb 12.4 Hct 37.8 MCV 96.4 MCH 32 MCHC 32.8 RDW 14.0 Plt Count 185 MPV 10.7 Neut % (Auto) 92.4 H Lymph % (Auto) 2.[address] % (Auto) 4.3 Eos % (Auto) 0.0 Baso % (Auto) 0.1 Neut # (Auto) 20.8 H Lymph # (Auto) 0.[address] [place] # (Auto) 1.0 H Eos # (Auto) 0.0 Baso # (Auto) 0.0 Total Counted 100 Immature Gran % 1.2 Nucleated RBC % 0.0 Immature Gran # 0.28 Segmented Neutrophils 94 H Lymphocytes 2 L Monocytes 4 Eosinophils Nucleated RBCs Nucleated RBCs # 0.00 Platelet Estimate Adequate Pappenheimer Bodies Morphology Comment INR PT Patient/Control Mix D-Dimer, Quantitative Circ Anticoag PTT ABG pH 7.431 ABG pCO2 34.8 L ABG pO2 142.2 H ABG HCO3 22.6 ABG Total CO2 23.7 ABG O2 Saturation 98.4 ABG Base Excess -1.1 FiO2 70.00 Sodium 143 Potassium 4.1 Chloride 107 Carbon Dioxide 20 L Anion Gap 20.1 H BUN 33 H Creatinine 2.00 H GFR Calculation 23 BUN/Creatinine Ratio 16.00 Glucose 124 H Calculated Osmolality 292.0 Calcium 8.8 Total Bilirubin 1.30 H AST 408 H ALT 390 H Alkaline Phosphatase 51 Total Creatine Kinase CK-MB (CK-2) Troponin I B-Natriuretic Peptide Total Protein 6.5 Albumin 3.2 L Globulin 3.3 Albumin/Globulin Ratio 0.9 L Free T4 TSH 3rd Generation Urine Color Urine Appearance Urine pH Ur Specific [place] Urine Protein Urine Glucose (UA) Urine Ketones Urine Blood Urine Nitrate Urine Bilirubin Urine Urobilinogen Urine Leukocytes Urine RBC Urine WBC Ur Squamous Epith Cells Hyaline Casts Ur Culture Indicated? - Diagnostic Findings Procedure: Chest x-ray: report reviewed by me, CT - chest: report reviewed by me , CT: report reviewed by me (CT abdomen) - EKG EKG results: interpreted by me EKG shows: sinus rhythm (Pacing) <Jovan Edmonds - Last Filed: 05/31/17 10:58> History of Present Illness - Consult Narrative History of present illness: Ms. Regalado is a 81 year old female CC: Digna Burgos MD Physical Examination Vital Signs Temp Pulse Resp BP Pulse Ox 98.3 F 68 20 165/59 96 05/30/17 13:39 05/30/17 13:39 05/30/17 13:39 05/30/17 13:39 05/30/17 13:39 Result/EKG - Labs CBC & BMP: 05/31/17 03:23 05/31/17 03:23 Labs: Laboratory Results - last 24 hr 05/30/17 05/30/17 05/30/17 14:06 16:15 16:15 WBC 14.3 H RBC 4.35 Hgb 13.7 Hct 41.8 MCV 96.1 MCH 32 MCHC 32.8 RDW 13.7 Plt Count 217 MPV 10.6 Neut % (Auto) 31.4 L Lymph % (Auto) 59.[address] [place] % (Auto) 5.2 Eos % (Auto) 1.4 Baso % (Auto) 0.6 Neut # (Auto) 4.5 Lymph # (Auto) 8.[address] [place] # (Auto) 0.8 Eos # (Auto) 0.2 Baso # (Auto) 0.1 Total Counted 100 Immature Gran % 2.2 Nucleated RBC % 0.3 Immature Gran # 0.32 Segmented Neutrophils 33 L Lymphocytes 62 H Monocytes 4 Eosinophils 1 Nucleated RBCs 1 Nucleated RBCs # 0.04 Platelet Estimate Normal Pappenheimer Bodies Morphology Comment INR 1.1 PT Patient/Control Mix 11.5 D-Dimer, Quantitative 2.2 Circ Anticoag PTT 27.7 ABG pH ABG pCO2 ABG pO2 ABG HCO3 ABG Total CO2 ABG O2 Saturation ABG Base Excess FiO2 Sodium Potassium Chloride Carbon Dioxide Anion Gap BUN Creatinine GFR Calculation BUN/Creatinine Ratio Glucose Calculated Osmolality Calcium Total Bilirubin AST ALT Alkaline Phosphatase Total Creatine Kinase CK-MB (CK-2) Troponin I B-Natriuretic Peptide Total Protein Albumin Globulin Albumin/Globulin Ratio Free T4 TSH 3rd Generation Urine Color Straw Urine Appearance Clear Urine pH 7.0 Ur Specific [place] 1.005 Urine Protein Negative Urine Glucose (UA) Negative Urine Ketones Negative Urine Blood Negative Urine Nitrate Negative Urine Bilirubin Negative Urine Urobilinogen < 2.0 H Urine Leukocytes Negative Urine RBC <1 Urine WBC <1 Ur Squamous Epith Cells Occasional Hyaline Casts Ur Culture Indicated? Not indicated 05/30/17 05/30/17 05/30/17 16:15 16:15 16:15 WBC RBC Hgb Hct MCV MCH MCHC RDW Plt Count MPV Neut % (Auto) Lymph % (Auto) [place] % (Auto) Eos % (Auto) Baso % (Auto) Neut # (Auto) Lymph # (Auto) [place] # (Auto) Eos # (Auto) Baso # (Auto) Total Counted Immature Gran % Nucleated RBC % Immature Gran # Segmented Neutrophils Lymphocytes Monocytes Eosinophils Nucleated RBCs Nucleated RBCs # Platelet Estimate Pappenheimer Bodies Morphology Comment INR PT Patient/Control Mix D-Dimer, Quantitative Circ Anticoag PTT ABG pH ABG pCO2 ABG pO2 ABG HCO3 ABG Total CO2 ABG O2 Saturation ABG Base Excess FiO2 Sodium 140 Potassium 3.5 Chloride 101 Carbon Dioxide 25 Anion Gap 17.5 H BUN 32 H Creatinine 2.40 H GFR Calculation 0 BUN/Creatinine Ratio 13.00 Glucose 166 H Calculated Osmolality 289.4 Calcium 9.2 Total Bilirubin 0.40 AST 406 H ALT 370 H Alkaline Phosphatase 64 Total Creatine Kinase 125 CK-MB (CK-2) 1.3 Troponin I 0.223 H B-Natriuretic Peptide 70 Total Protein 7.2 Albumin 3.5 Globulin 3.7 H Albumin/Globulin Ratio 0.9 L Free T4 1.49 H TSH 3rd Generation 9.490 H Urine Color Urine Appearance Urine pH Ur Specific [place] Urine Protein Urine Glucose (UA) Urine Ketones Urine Blood Urine Nitrate Urine Bilirubin Urine Urobilinogen Urine Leukocytes Urine RBC Urine WBC Ur Squamous Epith Cells Hyaline Casts Ur Culture Indicated? 05/30/17 05/30/17 05/31/17 16:23 20:00 01:58 WBC RBC Hgb Hct MCV MCH MCHC RDW Plt Count MPV Neut % (Auto) Lymph % (Auto) [place] % (Auto) Eos % (Auto) Baso % (Auto) Neut # (Auto) Lymph # (Auto) [place] # (Auto) Eos # (Auto) Baso # (Auto) Total Counted Immature Gran % Nucleated RBC % Immature Gran # Segmented Neutrophils Lymphocytes Monocytes Eosinophils Nucleated RBCs Nucleated RBCs # Platelet Estimate Pappenheimer Bodies Morphology Comment INR PT Patient/Control Mix D-Dimer, Quantitative Circ Anticoag PTT ABG pH 7.555 H ABG pCO2 25.7 L ABG pO2 246.8 H ABG HCO3 22.2 ABG Total CO2 23.0 ABG O2 Saturation 99.1 ABG Base Excess 1.2 FiO2 70.00 Sodium Potassium Chloride Carbon Dioxide Anion Gap BUN Creatinine GFR Calculation BUN/Creatinine Ratio Glucose Calculated Osmolality Calcium Total Bilirubin AST ALT Alkaline Phosphatase Total Creatine Kinase 177 D CK-MB (CK-2) 3.8 H Troponin I 1.080 H D B-Natriuretic Peptide Total Protein Albumin Globulin Albumin/Globulin Ratio Free T4 TSH 3rd Generation Urine Color Straw Urine Appearance Clear Urine pH 7.0 Ur Specific [place] 1.004 Urine Protein Negative Urine Glucose (UA) Negative Urine Ketones Negative Urine Blood Negative Urine Nitrate Negative Urine Bilirubin Negative Urine Urobilinogen < 2.0 H Urine Leukocytes Negative Urine RBC <1 Urine WBC Ur Squamous Epith Cells Hyaline Casts 1 Ur Culture Indicated? Not indicated 05/31/17 05/31/17 05/31/17 03:00 03:23 03:23 WBC 22.5 H D RBC 3.92 Hgb 12.4 Hct 37.8 MCV 96.4 MCH 32 MCHC 32.8 RDW 14.0 Plt Count 185 MPV 10.7 Neut % (Auto) 92.4 H Lymph % (Auto) 2.[address] % (Auto) 4.3 Eos % (Auto) 0.0 Baso % (Auto) 0.1 Neut # (Auto) 20.8 H Lymph # (Auto) 0.[address] [place] # (Auto) 1.0 H Eos # (Auto) 0.0 Baso # (Auto) 0.0 Total Counted 100 Immature Gran % 1.2 Nucleated RBC % 0.0 Immature Gran # 0.28 Segmented Neutrophils 94 H Lymphocytes 2 L Monocytes 4 Eosinophils Nucleated RBCs Nucleated RBCs # 0.00 Platelet Estimate Adequate Pappenheimer Bodies Morphology Comment INR PT Patient/Control Mix D-Dimer, Quantitative Circ Anticoag PTT ABG pH 7.431 ABG pCO2 34.8 L ABG pO2 142.2 H ABG HCO3 22.6 ABG Total CO2 23.7 ABG O2 Saturation 98.4 ABG Base Excess -1.1 FiO2 70.00 Sodium 143 Potassium 4.1 Chloride 107 Carbon Dioxide 20 L Anion Gap 20.1 H BUN 33 H Creatinine 2.00 H GFR Calculation 23 BUN/Creatinine Ratio 16.00 Glucose 124 H Calculated Osmolality 292.0 Calcium 8.8 Total Bilirubin 1.30 H AST 408 H ALT 390 H Alkaline Phosphatase 51 Total Creatine Kinase CK-MB (CK-2) Troponin I B-Natriuretic Peptide Total Protein 6.5 Albumin 3.2 L Globulin 3.3 Albumin/Globulin Ratio 0.9 L Free T4 TSH 3rd Generation Urine Color Urine Appearance Urine pH Ur Specific [place] Urine Protein Urine Glucose (UA) Urine Ketones Urine Blood Urine Nitrate Urine Bilirubin Urine Urobilinogen Urine Leukocytes Urine RBC Urine WBC Ur Squamous Epith Cells Hyaline Casts Ur Culture Indicated?
[2017-05-31] MEDS: PROPOFOL 1,000 MG/100 ML BOTTLE IV SCH (10:21)
[2017-05-31] MEDS ORDERED: GLUCAGON 1 MG VIAL IM PRN (10:27)
[2017-05-31] MEDS ORDERED: DEXTROSE 50% 25 GM/50 ML VIAL IV PRN (10:27)
--- NOTE | 2017-05-31 10:58 | ECHO Report ---
Eliza Regalado Exam Date: 05/31/2017 09:50 Referring Physician: Technologist: Shelbi Arellano LRHUGO Age: 81 Ht (in): 64 Wt (lb): 155 Gender: F Exam Location: [facility] Echo Indications: s/p resp arrest, pacemaker BP: 150 / 55 HR: 78 Rhythm: sinus arrhythmia Technical Quality: Pt. on Vent. IMPRESSIONS Normal chamber sizes 1-2+ concentric LVH Normal hyperdynamic LV systolic function with ejection fraction estimated be 65-70% without segmental wall motion reality Aortic sclerosis without stenosis 1+ mitral and, aortic regurgitation; 1-2+ tricuspid regurgitation with RVSP 21 mmHg plus RAP Pacing wire noted in the right heart MEASUREMENTS (Male / Female) Normal Values 2D ECHO LV Diastolic Diameter PLAX 3.7 cm 4.2 - 5.9 / 3.9 - 5.3 cm LV Systolic Diameter PLAX 2.0 cm LV Fractional Shortening PLAX 46.2 % IVS Diastolic Thickness 1.5 cm 0.6 - 1.0 / 0.6 - 0.9 cm LVPW Diastolic Thickness 1.3 cm 0.6 - 1.0 / 0.6 - 0.9 cm RV Internal Dim ED PLAX 2.2 cm Aortic Root Diameter 2.7 cm LA Systolic Diameter LX 3.4 cm 3.0 - 4.0 / 2.7 - 3.8 cm DOPPLER TR Peak Velocity 227.0 cm/s TR Peak Gradient 20.6 mmHg FINDINGS Left Ventricle Normal left ventricular cavity size. Mild concentric left ventricular hypertrophy with diastolic dysfunction. Left ventricular ejection fraction is estimated at 55-60 %. Right Ventricle Mildly increased right ventricular size. Right Atrium Normal right atrial size. Left Atrium Normal left atrial size. Mitral Valve Mild mitral valve sclerosis. Aortic Valve Mild aortic valve sclerosis. Trace to mild aortic valve regurgitation. Tricuspid Valve Morphologically normal tricuspid valve. Trace to mild tricuspid valve regurgitation. Tricuspid regurgitation velocities suggest a PAP of 20.6 mmHg + RAP. Pulmonic Valve Morphologically normal pulmonic valve. Pericardium No pericardial effusion. Aorta Normal size aortic root and proximal ascending aorta. Jovan Edmonds (Electronically Signed) Final Date: 31 May 2017 10:57
[2017-05-31] MEDS: DEXAMETHASONE 4 MG/1 ML VIAL IV SCH ×2 (11:04→17:52)
--- NOTE | 2017-05-31 11:16 | Pulmonology Consult Note ---
History of Present Illness Chief complaint: Ventilator. Cardiopulmonary arrest. Back pain History of present illness: Ms. Regalado is a 81 year old white female whom I been asked see in pulmonary consultation for evaluation and management of mechanical ventilation. This patient is usually followed by Dr. Niko Armijo. This patient came to the emergency room last night with back pain she has a known herniated disc and she is waiting for pain medicine consultation. She was given 1 mg of Dilaudid and apparently she had a respiratory arrest. See admit note for additional detail. Patient required intubation mechanical ventilation. The patient is unarousable she has repetitive seizures. Patient is unable to give a review of systems therefore the review of systems is negative. Allergy. Simvastatin peer Past history. Asthma. Chronic renal insufficiency. High blood pressure. Hyperlipidemia. Hypothyroidism. Peripheral edema. Muscle weakness. Previous back surgery. Past history of a bladder tack. Hysterectomy. Next surgery. Thyroid surgery. Family history. Positive for heart attacks. Positive for heart surgery. Positive for high blood pressure and breast cancer Social history. Patient never used tobacco or alcohol. She is she is followed by Dr. Niko Armijo Chest x-ray. 05/30/2017. Slight hyperinflation. No heart failure. No lymph. Left pulmonary artery appears to be enlarged. Pacer is present over the left chest. I do not see any wire fractures. Chest x-ray. 05/31/2017. Left lower lung infiltrate with atelectasisNo heart failure. Slight increased markings inferior to the right ABGs on mechanical ventilation FiO2 of 70% shows a pH 7.43, T06 CO2 of 34.8. PO2 of 142 and a bicarb of 22.3. Lab. Electrolytes are normal. Creatinine is dropped from 2.4-2.00 with a BUN of 33 alkaline Andrew is normal with a marked elevation of transaminases and a total bilirubin of 1.30. Total protein is 6.5 albumin is low at 3.2 globulin is normal at 3.3. Admit white count was 14,300 with 59 segs today's value is 22 ,500 with 92% segs. Platelets are 185,000. TSH is markedly elevated at 9.490 free T4 is also elevated at 1.49. Urinalysis shows no evidence of infection Microbiology. No results. Physical exam. Vital signs. See below. No fever. Neurologic. Patient is having repetitive small seizures. She does not respond to pain. I see no spontaneous movement other than what is probably early posturing of the lower and upper extremities. Face. Symmetrical. No edema of the lips or tongue. Neck. Symmetrical. No mass. No meningismus. Thyroid was not palpated Lymphatics. No submandibular cervical supraclavicular clavicular epitrochlear adenopathy Chest. Mild large airway congestion and a few inspiratory squeaks at the left base. Heart. Slightly lateral PMI no gallop Abdomen. Nondistended. Only rare bowel sounds. Lower extremities. No evidence of deep venous thrombophlebitis Skin of the face and hands show no cancerous infectious lesions skin of the lower legs show chronic venous stasis changes. No other areas of skin were examined. Arterial. Carotid upstroke was failure I did not hear any bruits upper extremity pulses are palpable lower extremity pulses were nonpalpable. No evidence of lower extremity ischemia Venous exam of the neck and upper extremities normal lower extremities show evidence of previous chronic venous stasis. The remainder of the physical exam is noncontributory. Impression. 1. Cardiopulmonary arrest requiring intubation mechanical ventilation. Etiology is undetermined. 2. Recent severe back pain secondary to herniated nucleus pulposus 3. Hypoxemia out of proportion to what I would expect 4. Acute left lower lung infiltrate post intubation. Suspect that this will be an aspiration pneumonia with the potential for bacterial superinfection 5. Probable acute central nervous system hypoxic and an ischemic injury with resultant status epilepticus 6. Chronic renal failure. 7. History of asthma 8. History of high blood pressure 9. Hypothyroidism. 10. Hyperlipidemia. 11. See past history 12. Abnormal liver function Plan. 1. Mechanical ventilator weaning and physical therapy protocols 2. Sputum for Gram stain culture and sensitivity 3. Elective fiberoptic bronchoscopy for probable aspiration. The acute damage has been done. I will wait until the patient is a little more stable 4. Daily chest x-ray, ABGs and lab. 5. We need to repeat free T4 in a day or so. At that point we need to decide about replacement 6. Later on when needed pain medicine consultation of this patient survives 7. EEG 8. Neurology consultation 9. Proton pump inhibitor protocol 10. Deep venous thrombophlebitis prevention protocol 11. Agree with present antibiotics 12. Decadron. See orders 13. Dr. Digna Burgos and I have reviewed the case and we have coordinated our intermediate Medications Medication Instructions Recorded Confirmed Type Aspirin [Ecotrin] 81 mg PO QAM 03/21/15 05/30/17 History Cranberry Conc/C/Bacill Coag 1 each PO QAM 03/21/15 05/30/17 History [Cranberry Tablet] Fish Oil/Dha/Epa [Fish Oil 1,200 1 each PO QAM 03/21/15 05/30/17 History mg Fish Oil] Flaxseed Oil 1,000 mg PO QAM 03/21/15 05/30/17 History Flecainide Acetate 50 mg PO Q12H 03/21/15 05/30/17 History Gabapentin 300 mg PO TID 03/21/15 05/30/17 History Gluc/Dwain-MSM#1/C/Mariano/Magdiel/Bor 1 each PO QAM 03/21/15 05/30/17 History [Osteo Bi-Flex Caplet] Hydralazine HCl 100 mg PO BID 03/21/15 05/30/17 History Levothyroxine Tab [Synthroid Tab] 50 mcg PO DAILY@0700 03/21/15 05/30/17 History Multivit-Min/FA/Lycopene/Lut 1 each PO QAM 03/21/15 05/30/17 History [Centrum Silver Tablet] Multivitamin (Ocuvite) [Ocuvite] 1 tablet PO QAM 03/21/15 05/30/17 History Torsemide 40 mg PO QAM 03/21/15 05/30/17 History cloNIDine TAB [Catapres Tab] 0.1 mg PO BEDTIME 03/21/15 05/30/17 History Latanoprost [Latanoprost 0.005 % 1 drop BOTH EYES BEDTIME 06/18/16 05/30/17 History Oph Soln] Loratadine Tab [Claritin Tab] 10 mg PO QAM PRN 06/18/16 05/30/17 History Potassium Chloride 10 meq PO BEDTIME 04/03/17 05/30/17 History Cyclobenzaprine [Flexeril] 10 mg PO TID PRN 05/30/17 05/30/17 History Glucosamine/D3/Boswellia Orquidea 1 each PO QAM 05/30/17 05/30/17 History [Osteo Bi-Flex Tablet] Hydrocodone/Acetaminophen [[place] 1 each PO Q4H PRN 05/30/17 05/30/17 History 10-325 Tablet] Pantoprazole Sodium 40 mg PO BEDTIME 05/30/17 05/30/17 History Allergies Allergy/AdvReac Type Severity Reaction Status Date / Time simvastatin AdvReac Intermediate Muscle Pain Verified 03/21/17 08:50 Exam (Pulmonay) H&P - Constitutional Vitals: Period Temp Pulse Resp BP Sys/Hoff Pulse Ox Last 24 Hr 96.8 F-98.3 F 60-70 10-20 105-200/33-84 96-100 Medical,Surgical,& Family Hx - Medical History Cardio: History of: Cardiac Dysrhythmia (Takes Flecanide), CAD, Hypertension, Pacemaker (left), Cardiovascular Problems (Crime Specialist Dr. Mcintosh) Neurology: History of: Peripheral Neuropathy No history of: Seizures HEENT: History of: Eye Problem (Glasses; Increase Pressure in Eyes Trying to prevent Glaucoma), Dental Problems (Caps) No history of: Glaucoma Endocrine: History of: Thyroid Disorder Respiratory: History of: Asthma No history of: Pneumonia (Hx Pneum Vac), Respiratory Problems (Flu Vac 2015/ 2016 Season) Gastrointestinal: History of: Bowel Obstruction, Hemorrhoids, Polyps Musculoskeletal: History of: Back/Neck Problems, Musculoskeletal Problems ( Arthritis) Other: History of: Cancer (Skin Cancer), Skin Problems (Hx Skin cancers removed) No history of: Anesthesia Reactions - Surgical History Cardiac Surgeries: Sugical HX of: Cardiac Surgery (Pacemaker) HEENT Surgeries: Surgical HX of: Eye Surgery (cataract surgery, implants) Abdominal Surgeries: Surgical HX of: Appendectomy, Colonoscopy, EGD Reproductive Surgeries: Surgical HX of;: Hysterectomy (Complete) Patient denies;: Genitourinary Surgery Orthopedic Surgeries: Surgical HX of;: Spinal Surgery (Neck and Low Back Surgery ) - Family History Family History: Reports;: Family Cancer (mother father), Family Stroke (father) Comment Only: Family Heart Disease (mother father), Family Hypertension ( father) - Social History Smoking Status: Never smoker Frequency of Alcohol Use: None Type of Drug Use: None Results - Labs CBC & BMP: 05/31/17 03:23 05/31/17 03:23
--- NOTE | 2017-05-31 14:49 | Hospitalist Progress Note ---
Assessment and Plan (1) Anoxic brain injury Status: Acute Assessment and plan: Dr. Thrasher consulted. EEG pending. Current Visit: Yes (2) Seizure Status: Acute Assessment and plan: EEG, keppra and diprivan Current Visit: Yes (3) LLL pneumonia Status: Acute Assessment and plan: cont rocephin and azithromycin, Dr. Garcia to bronch Current Visit: Yes (4) Respiratory arrest Status: Acute Assessment and plan: respiratory arrest in the ER, now intubated Current Visit: Yes (5) Cardiac arrest Status: Acute Assessment and plan: secondary to her respiratory arrest, mild elevation of troponins due to cpr, no evidence of acute CA Current Visit: Yes (6) Hypothyroidism Status: Acute Assessment and plan: cont levothyroxine Current Visit: Yes (7) Chronic back pain Status: Chronic Assessment and plan: hold all pain meds Current Visit: Yes (8) PAF (paroxysmal atrial fibrillation) Status: Chronic Assessment and plan: cont flecanide Current Visit: Yes (9) CKD (chronic kidney disease) stage 4, GFR 15-29 ml/min Status: Chronic Assessment and plan: cont to monitor Current Visit: Yes (10) Hypertension Status: Chronic Assessment and plan: controlled Current Visit: Yes Hospitalist: Subjective Interval history: Had a family conference with the [place] family including her sisters, daughter and . I told them I was concerned that she would not recover due to her lack of neurological response. Patient has suffered anoxic brain injury. Patient is still breathing over the vent. An EEG was done earlier this morning because she look like she was having seizures. Family says no history of seizures in the past. Patient was then started on Keppra and the seizures stopped. Patient was also placed on diprivan for sedation which also helps to control the seizures. Dr. Thrasher is been consulted for his opinion. Patient had a respiratory arrest which caused a cardiac arrest. Her troponins were mildly elevated secondary to CPR. No evidence to support an CA. Dr. Edmonds from cardiology was consulted and has seen and examined her. Her echocardiogram showed an EF of 65%. She has a history of paroxysmal atrial fibrillation. Exam - Constitutional Vitals: Period Temp Pulse Resp BP Sys/Hoff Pulse Ox Last 24 Hr 96.8 F-98.2 F 60-70 10-18 105-200/33-84 100-100 Exam: Heart Rate-[tachy] Lungs-[course] GI-[+bs soft, NT] Ext-[no edema] Neuro pupils sluggish to light, no spontaneous movement, no ability to understand shown, no response to painful stimuli psych unable to evaluate. General [no acute distress] Results - Labs CBC & BMP: 05/31/17 03:23 05/31/17 03:23 Lab Results: I have reviewed the past 24 hour labs - Diagnostic Findings Procedure: Chest x-ray: report reviewed by me (Left lower lobe pneumonia), CT - chest: report reviewed by me (No evidence of pulmonary emboli but does have left lower lobe pneumonia.), CT: report reviewed by me (Head CT shows progression of ventricular prominence out of proportion to the amount of atrophy. Consider NPH), Ultrasound: report reviewed by me (ef 65%, with 2+ tricuspid regurg and PAP of 20)
[2017-05-31] MEDS: FLECAINIDE 50 MG TABLET PO SCH (15:24)
--- NOTE | 2017-05-31 16:22 | Neurology Consult Note ---
History of Present Illness History of present illness: Patient is unable to provide me any history. History basically obtained from the chart. Ms. Regalado is a 81 year old lady with past medical history significant for pacemaker placement, thyroid disorder and possible chronic kidney disease who was in her normal state of health until approximately 1 month ago. For the past month patient's been dealing with bad excruciating back pain. She sees Dr. Armijo in clinic. She was going to have a appointment set up with neurosurgery in [place]. She came in yesterday with intractable back pain. She had been having trouble with the least amount of movement. She was triaged to fast track. Patient received some steroids and pain medicine ( Dilauded). It seemed like she was resting. But when they checked on her it was noted that she was not breathing. A code was called. Patient was given two rounds of epi and some Narcan. She was pulseless and breathless. A pulse returned after treatment. She was coded approximately 15 minutes. She has made no spontaneous movement since then. And she does not withdraw from pain. She has been having some jerking movements of the whole body off and on. This morning she was started on Keppra. EEG was performed which revealed generalized seizure activity and burst suppression pattern Home Medications Medication Instructions Recorded Confirmed Type Aspirin [Ecotrin] 81 mg PO QAM 03/21/15 05/30/17 History Cranberry Conc/C/Bacill Coag 1 each PO QAM 03/21/15 05/30/17 History [Cranberry Tablet] Fish Oil/Dha/Epa [Fish Oil 1,200 1 each PO QAM 03/21/15 05/30/17 History mg Fish Oil] Flaxseed Oil 1,000 mg PO QAM 03/21/15 05/30/17 History Flecainide Acetate 50 mg PO Q12H 03/21/15 05/30/17 History Gabapentin 300 mg PO TID 03/21/15 05/30/17 History Gluc/Dwain-MSM#1/C/Mariano/Magdiel/Bor 1 each PO QAM 03/21/15 05/30/17 History [Osteo Bi-Flex Caplet] Hydralazine HCl 100 mg PO BID 03/21/15 05/30/17 History Levothyroxine Tab [Synthroid Tab] 50 mcg PO DAILY@0700 03/21/15 05/30/17 History Multivit-Min/FA/Lycopene/Lut 1 each PO QAM 03/21/15 05/30/17 History [Centrum Silver Tablet] Multivitamin (Ocuvite) [Ocuvite] 1 tablet PO QAM 03/21/15 05/30/17 History Torsemide 40 mg PO QAM 03/21/15 05/30/17 History cloNIDine TAB [Catapres Tab] 0.1 mg PO BEDTIME 03/21/15 05/30/17 History Latanoprost [Latanoprost 0.005 % 1 drop BOTH EYES BEDTIME 06/18/16 05/30/17 History Oph Soln] Loratadine Tab [Claritin Tab] 10 mg PO QAM PRN 06/18/16 05/30/17 History Potassium Chloride 10 meq PO BEDTIME 04/03/17 05/30/17 History Cyclobenzaprine [Flexeril] 10 mg PO TID PRN 05/30/17 05/30/17 History Glucosamine/D3/Boswellia Orquidea 1 each PO QAM 05/30/17 05/30/17 History [Osteo Bi-Flex Tablet] Hydrocodone/Acetaminophen [[place] 1 each PO Q4H PRN 05/30/17 05/30/17 History 10-325 Tablet] Pantoprazole Sodium 40 mg PO BEDTIME 05/30/17 05/30/17 History Allergies Allergy/AdvReac Type Severity Reaction Status Date / Time simvastatin AdvReac Intermediate Muscle Pain Verified 03/21/17 08:50 ROS unobtainable: due to endotracheal tube, due to mental status Medical,Surgical,& Family Hx - Medical History Cardio: History of: Cardiac Dysrhythmia (Takes Flecanide), CAD, Hypertension, Pacemaker (left), Cardiovascular Problems (Automotive Technician Dr. Mcintosh) Neurology: History of: Peripheral Neuropathy No history of: Seizures HEENT: History of: Eye Problem (Glasses; Increase Pressure in Eyes Trying to prevent Glaucoma), Dental Problems (Caps) No history of: Glaucoma Endocrine: History of: Thyroid Disorder Respiratory: History of: Asthma No history of: Pneumonia (Hx Pneum Vac), Respiratory Problems (Flu Vac 2016/ 2017 Season) Gastrointestinal: History of: Bowel Obstruction, Hemorrhoids, Polyps Musculoskeletal: History of: Back/Neck Problems, Musculoskeletal Problems ( Arthritis) Other: History of: Cancer (Skin Cancer), Skin Problems (Hx Skin cancers removed) No history of: Anesthesia Reactions - Surgical History Cardiac Surgeries: Sugical HX of: Cardiac Surgery (Pacemaker) HEENT Surgeries: Surgical HX of: Eye Surgery (cataract surgery, implants) Abdominal Surgeries: Surgical HX of: Appendectomy, Colonoscopy, EGD Reproductive Surgeries: Surgical HX of;: Hysterectomy (Complete) Patient denies;: Genitourinary Surgery Orthopedic Surgeries: Surgical HX of;: Spinal Surgery (Neck and Low Back Surgery ) - Family History Family History: Reports;: Family Cancer (mother father), Family Stroke (father) Comment Only: Family Heart Disease (mother father), Family Hypertension ( father) - Social History Smoking Status: Never smoker Frequency of Alcohol Use: None Type of Drug Use: None Exam - Constitutional Vitals: Period Temp Pulse Resp BP Sys/Hoff Pulse Ox Last 24 Hr 96.8 F-98.2 F 60-70 10-18 105-200/33-84 100-100 Exam: GENERAL: Patient is in no acute distress. NECK: Neck is supple. There is no JVD. No carotid bruits present. No thyroid masses. CVS: First and second heart sounds are normal. There is no S3 present. Regular rate and rhythm. RESPIRATORY: Lungs are clear to auscultation without any rales or rhonchi. ABDOMEN: Soft and non-tender. Bowel sounds are present. There is no hepatosplenomegaly. EXT: There is no palpable edema. Peripheral pulses are present. Skin: No rashes Central Nervous system: General: Unresponsive Speech: None Comprehension: None on vent Facial expressions: Normal Cranial Nerves: Left pupil is dilated but reactive, right pupil is nonreactive but irregular could be surgical. Doll's head eye movements are negative. No facial asymmetry is seen Motor: Bulk and Tone is normal. Strength cannot be assessed Sensory: Cannot be assessed Reflexes: 1+ and symmetrical Cerebellar function: Cannot be assessed Toes: Equivocal Gait: Cannot be assessed Assessment: Hypoxic anoxic brain injury Status epilepticus Recommendations: Change Keppra to 500 mg IV every 8 Wean off of diprivan Given her age, prognosis is poor. Thank you for the consult Results - Labs CBC & BMP: 05/31/17 03:23 05/31/17 03:23
[2017-05-31] MEDS: cefTRIAXone 1,000 MG in SODIUM CHLORIDE 0.9% 100 ML IV SCH (18:30)
[2017-05-31] MEDS: ENOXAPARIN 30 MG/0.3 ML SYRINGE SUBCUT SCH (18:35)
[2017-05-31] MEDS: PANTOPRAZOLE 40 MG VIAL IV SCH (18:35)
[2017-05-31] MEDS: AZITHROMYCIN INJ 500 MG in SODIUM CHLORIDE 0.9% 250 ML IV SCH (18:54)
--- NOTE | 2017-05-31 20:09 | Electroencephalogram ---
HISTORY: An 81-year-old female with a history of seizures. EEG run for 30 minutes. INTRODUCTION: A digital EEG was performed using the standard 10/20 system of electrode placement wit h one channel of EKG monitoring. Photic stimulation is performed. DESCRIPTION OF RECORD: The background is very disorganized, consists of 2 to 3 hertz very low amplit ude bilaterally symmetrical rhythm. This record is remarkable for intermittent burst of generalized spike and wave discharges followed by suppression of 3 to 4 seconds. Photic stimulation does not rosario cit a driving response. Heart rate 60 beats per minute. IMPRESSION: ABNORMAL EEG DUE TO: 1. GENERALIZED SLOWING. 2. BURST SUPPRESSION PATTERN. CLINICAL CORRELATION: This record is supportive of severe encephalopathy, which could be secondary t o postictal state, posthypoxic state, metabolic disorder, diffuse [employer] insult, or increased intracrani al pressure. In addition, this EEG is supportive of severe encephalopathy as well as a status epilep ticus. Clinical correlation is suggested.
[2017-05-31] MEDS: LATANOPROST 0.005% OPH SOLN 2.5 ML BOTTLE BOTH EYES SCH (21:47)
[2017-06-01] MEDS: DEXAMETHASONE 4 MG/1 ML VIAL IV SCH ×5 (00:14→23:50)
[2017-06-01] MEDS: SODIUM CHLORIDE 0.9% 1,000 ML IV SCH ×2 (02:46→06:31)
[2017-06-01 03:31] LABS: ABG Base Excess -0.8 MMOL/L (-2.5-2.5); ABG HCO3 23.7 MMOL/L (20-26); ABG Oxygen Saturation 99.5 % (95-100); ABG PCO2 31.3 MM HG (35-48); ABG PH 7.459 (7.35-7.45); ABG TCO2 19.9 MMOL/L (23-27); Allen Test Positive; Pt O2 Delivery Device Ventilator
[2017-06-01] MEDS: PROPOFOL 1,000 MG/100 ML BOTTLE IV SCH ×2 (03:43→18:00)
[2017-06-01] MEDS: FLECAINIDE 50 MG TABLET PO SCH ×2 (04:21→14:45)
[2017-06-01 06:03] LABS: Calcium 8.7 MG/DL (8.5-10.1); Magnesium 2.4 MG/DL (1.8-2.4); Osmolality,Calculated 296.8 MOS/KG (273-304); Potassium 4.3 MMOL/L (3.5-5.1)
[2017-06-01 06:09] LABS: Calcium 8.7 MG/DL (8.5-10.1); Osmolality,Calculated 292.1 MOS/KG (273-304); Phosphorous 3.2 MG/DL (2.5-4.9); Potassium 4.3 MMOL/L (3.5-5.1)
[2017-06-01 07:00] LABS: Basophils % 0.1 % (0.0-0.8); Hematocrit 34.5 VOL% (35.7-47.0); Hemoglobin 11.6 GM/DL (12.0-16.0); Lymphocytes # 1.1 10*3/uL (1.4-4.0); Lymphocytes % 5.5 % (21.3-54.2); Mean Corpuscular HGB Conc 33.6 GM/DL (32-36); Mean Corpuscular Hemoglobin 32 PG (27-34); Mean Corpuscular Volume 93.8 FL (87-102); Mean Platelet Volume 10.5 FL (9.6-12.0); Monocytes # 0.7 10*3/uL (0.11-0.8); Monocytes % 3.5 % (1.7-12.7); Neutrophils # 17.8 10*3/uL (1.4-7.4); Neutrophils % 89.9 % (38.7-73.9); Platelet Count 172 T/CUMM (130-400); Red Blood Count 3.68 MC/CUMM (3.8-5.5); Red Cell Distribution Width 14.2 % (9.3-17.3); White Blood Count 19.7 T/CUMM (4-12)
[2017-06-01] MEDS ORDERED: LEVOTHYROXINE 50 MCG TABLET PO SCH (07:00)
--- NOTE | 2017-06-01 08:06 | XRay Report ---
Exam: XR chest 1V portable Indication: Intubated, ventilator Comparison study: Prior chest radiograph 05/31/2017 Findings: Endotracheal tube is in similar position. There is an esophagogastric tube now noted in place which terminates in the proximal stomach and should be advanced 8-10 cm for better positioning. Cardiac silhouette is mildly enlarged, similar prior. Minimal patchy left basilar opacities and blunting the costophrenic angle are essentially unchanged. No pneumothorax. Left chest pacemaker device and wire leads appear stable. Impression: Esophagogastric tube in the proximal stomach and should be advanced 8-10 cm for optimal positioning. Stable position of endotracheal tube. Similar left basilar opacities may represent atelectasis/infiltrates and small pleural effusion. PROCEDURE INTERPRETED AT [facility] DEPARTMENT OF RADIOLOGY Final Report Signed by: Oscar Solis
[2017-06-01] MEDS: hydrALAZINE 20 MG/1 ML VIAL IV PRN (08:33)
--- NOTE | 2017-06-01 08:35 | Event Note ---
In hospital diagnostic and therapeutic fiberoptic bronchoscopy. Bilateral bronchoalveolar lavages were sent for cytology, Gram stain, bacterial culture, fungal stains and culture. This patient had a cardiorespiratory arrest while in the emergency room and required intubation mechanical ventilation. Her chest x-ray showed a left lower lung infiltrate and microatelectasis at the right base. He was felt that she aspirated. Early on she had status epilepticus and bronchoscopy was delayed a day till it appears safe for him. I felt at that time the injury had already occurred and we should wait for safer time. For these reasons the patient's evaluated with fiberoptic bronchoscopy. Endotracheal tube was then good position but fairly close to the sony and it was repositioned. The distal trachea was normal and the sony was sharp. The left mainstem bronchus contained a good bit of erythema which seem to spare the left upper lung left lower lung was erythematous and edematous and friable without stenosis. This had the appearance of a mild to moderate endobronchial aspiration injury. All the subsegments of the left lower lung were lavaged until clear. The specimens were sent for studies noted above. I did not see any endobronchial evidence to suggest a cancer. The right mainstem bronchus was erythematous there was erythema in the right upper lung and right lower lung. This seem to spare the right middle lung. In the right lower lung there was erythema and edema friability without stenosis. This also had the appearance of a mild to moderate aspiration injury. All of the segmental bronchi in the right lower lung were irrigated and lavaged until clear. The specimens were sent for the studies mentioned above. I did not see any endobronchial evidence of cancer. The patient tolerated procedure well there were no complications. Findings were discussed with Dr. Digna Burgos. Richardson [employer] nurse practitioner was present. Impression. 1. Acute aspiration with bibasilar erosive friable nonstenotic bronchitis 2. Retained secretions 3. Ineffective cough 4. Mechanical ventilation 5. Endotracheal tube repositioned. Plan. 1. Follow-up chest x-ray 2. Check bronchoscopy specimens.
--- NOTE | 2017-06-01 09:59 | Hospitalist Progress Note ---
Assessment and Plan (1) Anoxic brain injury Status: Acute Assessment and plan: Dr. Thrasher assisting with her care. Continue to monitor for seizure activity Current Visit: Yes (2) Seizure Status: Acute Assessment and plan: EEG yesterday showed generalized slowing and seizures, patient still having seizures when off diprivan, repeat EEG today,cont keppra and diprivan, started vimpat Current Visit: Yes (3) LLL pneumonia Status: Acute Assessment and plan: s/p bronch by Dr. Garcia, cont rocephin and azithromycin. We have discussed her case Current Visit: Yes (4) Respiratory arrest Status: Acute Assessment and plan: respiratory arrest in the ER, now intubated Current Visit: Yes (5) Cardiac arrest Status: Acute Current Visit: Yes (6) Hypothyroidism Status: Acute Assessment and plan: hold levothyroxine and recheck T4 in two days. Current Visit: Yes (7) Chronic back pain Status: Chronic Assessment and plan: hold all pain meds Current Visit: Yes (8) PAF (paroxysmal atrial fibrillation) Status: Chronic Assessment and plan: cont flecanide Current Visit: Yes (9) CKD (chronic kidney disease) stage 4, GFR 15-29 ml/min Status: Chronic Assessment and plan: mild imrpovement with fluids, still not acute, CKD stage 3. Current Visit: Yes (10) Hypertension Status: Chronic Assessment and plan: b/p not controlled, agitated after bronch, cont prn hydralazine, will start norvasc Current Visit: Yes Hospitalist: Subjective Interval history: Patient is still having seizures when we turn off the diprivan. She is going to get a repeat EEG today. I am adding Vimpat. We have restarted her diprivan. Exam - Constitutional Vitals: Period Temp Pulse Resp BP Sys/Hoff Pulse Ox Last 24 Hr 97.6 F-98.7 F 60-85 10-22 110-200/39-74 100-100 Exam: Heart Rate-[RRR] Lungs-[clear] GI-[+bs soft, NT] Ext-[no edema] Neuro no spontaneous movement, no ability to understand verbal commands, no response to painful stimuli psych unable to evaluate. General [no acute distress] Results - Labs CBC & BMP: 06/01/17 06:45 06/01/17 05:21 Lab Results: I have reviewed the past 24 hour labs - Diagnostic Findings Procedure: Chest x-ray: report reviewed by me (left LL infiltrate)
[2017-06-01] MEDS: LANSOPRAZOLE ODT 30 MG TABLET NG SCH (10:00)
[2017-06-01] MEDS: AZITHROMYCIN 40 MG/ML 15 ML/BOTTLE PO SCH (10:00)
[2017-06-01] MEDS: ASPIRIN EC 81 MG TABLET PO SCH (10:00)
[2017-06-01] MEDS: amLODIPine 5 MG TABLET PO SCH (11:00)
[2017-06-01] MEDS ORDERED: LACOSAMIDE INJ 200 MG in SODIUM CHLORIDE 0.9% 50 ML IV SCH (11:00)
--- NOTE | 2017-06-01 11:40 | Pulmonology Progress Note ---
Pulmonary - PN: Subj Interval history: Richardson Craft, [facility] acting as scribe for Dr. Jordan Garcia Mrs. Regalado is an 81-year-old white female who we saw in initial pulmonary consultation on 05/31/2017. At that time, our impressions were: Impression. 1. Cardiopulmonary arrest requiring intubation mechanical ventilation. Etiology is undetermined. 2. Recent severe back pain secondary to herniated nucleus pulposus 3. Hypoxemia out of proportion to what I would expect 4. Acute left lower lung infiltrate post intubation. Suspect that this will be an aspiration pneumonia with the potential for bacterial superinfection 5. Probable acute central nervous system hypoxic and an ischemic injury with resultant status epilepticus 6. Chronic renal failure. 7. History of asthma 8. History of high blood pressure 9. Hypothyroidism. 10. Hyperlipidemia. 11. See past history 12. Abnormal liver function 06/01/2017. The patient was seen today along with her nurse, Mario. Patient's chest x-ray is improving. Fiberoptic bronchoscopy was done earlier today. This showed acute aspiration with bibasilar erosive probable nonstenotic bronchitis and retained secretions. Please see the bronchoscopy report for more information. We have made some slight adjustments to the patient's ventilator today. We have changed from IMV to an assist control of 10. FiO2 has been decreased to 50% and we are going to proceed with CPAP trials. We have discussed the case with Dr. Digna Burgos and have coordinated our care. Medications have been reviewed. We made no changes today. Labs been reviewed. White count is 19,700 with 89.9% segs; H&H 11.6/34.5; platelet count 172,000; creatinine has improved to 1.80, BUN 33, sodium 142, potassium 4.3, magnesium 2.4 ABGs this morning on an FiO2 of 70% and mechanical ventilation showed a pH of 7.459, PCO2 31.3, PO2 292.0, bicarb 23.7, and oxygen saturation 99.5% Exam (Progress Note) - Constitutional Vitals: Period Temp Pulse Resp BP Sys/Hoff Pulse Ox Last 24 Hr 97.6 F-98.7 F 60-85 10-22 110-200/45-74 100-100 Exam: Chest with mild large airway congestion that improved post bronchoscopy Heart with a slightly lateral PMI but no gallop Abdomen is nondistended and nontender; rare bowel sounds Lower extremities with nothing to suggest acute deep venous thrombophlebitis Psychiatric and neurologic unable to be obtained secondary to sedation and mechanical ventilation Plan: Change IMV to assist control of 10. Decrease FiO2 to 50%. Start CPAP trials. Follow-up bronchoscopy results when available. Daily chest x-ray and ABGs. See orders. Results - Labs CBC & BMP: 06/01/17 06:45 06/01/17 05:21
[2017-06-01] MEDS ORDERED: PHENYTOIN INJ 1,000 MG in SODIUM CHLORIDE 0.9% 100 ML IV ONE (14:30)
--- NOTE | 2017-06-01 15:20 | Neurology Progress Note ---
Neurology - PN : Subjective Interval history: Patient continued to remain same. This morning EEG revealed continue seizures suggestive of sub-clinical status. She is not responding to even deep painful stimuli. Exam (Progress Note) - Constitutional Vitals: Period Temp Pulse Resp BP Sys/Hoff Pulse Ox Last 24 Hr 97.6 F-98.7 F 60-85 10-22 106-200/53-74 100-100 Exam: GENERAL: Patient is in no acute distress. NECK: Neck is supple. There is no JVD. No carotid bruits present. No thyroid masses. CVS: First and second heart sounds are normal. There is no S3 present. Regular rate and rhythm. RESPIRATORY: Lungs are clear to auscultation without any rales or rhonchi. ABDOMEN: Soft and non-tender. Bowel sounds are present. There is no hepatosplenomegaly. EXT: There is no palpable edema. Peripheral pulses are present. Skin: No rashes Central Nervous system: General: Unresponsive Speech: None Comprehension: None on vent Facial expressions: Normal Cranial Nerves: Left pupil is dilated but reactive, right pupil is nonreactive but irregular could be surgical. Doll's head eye movements are negative. No facial asymmetry is seen Motor: Bulk and Tone is normal. Strength cannot be assessed Sensory: Cannot be assessed Reflexes: 1+ and symmetrical Cerebellar function: Cannot be assessed Toes: Equivocal Gait: Cannot be assessed Assessment: Hypoxic anoxic brain injury Status epilepticus Recommendations: Change Keppra to 500 mg IV every 8 Wean off of diprivan Given her age, prognosis is poor. Thank you for the consult Results - Labs CBC & BMP: 06/01/17 06:45 06/01/17 05:21 Assessment and Plan (1) Status epilepticus Status: Acute Assessment and plan: Continue Keppra at the same dose Add Dilantin Discussed at length with the family again regarding disease process, treatment options and prognosis Prognosis: Extremely poor Current Visit: Yes
[2017-06-01] MEDS: ENOXAPARIN 30 MG/0.3 ML SYRINGE SUBCUT SCH (18:00)
[2017-06-01] MEDS: INSULIN REGULAR 100 UNIT/ML SUBCUT SCH (18:00)
--- NOTE | 2017-06-01 18:18 | Electroencephalogram ---
HISTORY: This is a followup EEG, had diagnosis of seizure disorder. INTRODUCTION: A digital EEG was performed using the standard 10/20 system of electrode placement wit h one channel of EKG monitoring. Photic stimulation is not performed. DESCRIPTION OF RECORD: The background is very disorganized consists of bilateral symmetrical sharp wave and discharges. This record is remarkable for continued generalized spike and wave discharges. Heart rate is 60 beats per minute. IMPRESSION: ABNORMAL ELECTROENCEPHALOGRAM DUE TO CONTINUED, GENERALIZED SPIKE AND WAVE DISCHARGES. CLINICAL CORRELATION: This record is supportive of to have clinical status epilepticus. Clinical co rrelation is suggested.
[2017-06-01] MEDS: cefTRIAXone 1,000 MG in SODIUM CHLORIDE 0.9% 100 ML IV SCH (18:45)
[2017-06-01] MEDS: LATANOPROST 0.005% OPH SOLN 2.5 ML BOTTLE BOTH EYES SCH (21:40)
[2017-06-01] MEDS: PHENYTOIN 100 MG/2 ML VIAL IV SCH (23:56)
[2017-06-02] MEDS: INSULIN REGULAR 100 UNIT/ML SUBCUT SCH ×4 (00:51→18:00)
[2017-06-02] MEDS: FLECAINIDE 50 MG TABLET PO SCH ×2 (03:19→15:00)
[2017-06-02 04:24] LABS: ABG Base Excess -1.3 MMOL/L (-2.5-2.5); ABG HCO3 23.4 MMOL/L (20-26); ABG Oxygen Saturation 99.4 % (95-100); ABG PCO2 35.1 MM HG (35-48); ABG PH 7.416 (7.35-7.45); ABG TCO2 19.2 MMOL/L (23-27); Allen Test Positive; Pt O2 Delivery Device Ventilator
[2017-06-02] MEDS: DEXAMETHASONE 4 MG/1 ML VIAL IV SCH ×3 (05:40→16:30)
[2017-06-02 06:16] LABS: Basophils % 0.1 % (0.0-0.8); Hematocrit 31.8 VOL% (35.7-47.0); Hemoglobin 10.6 GM/DL (12.0-16.0); Immature Granulocytes % 1.1 %; Lymphocytes # 0.9 10*3/uL (1.4-4.0); Lymphocytes % 5.2 % (21.3-54.2); Mean Corpuscular HGB Conc 33.3 GM/DL (32-36); Mean Corpuscular Hemoglobin 31 PG (27-34); Mean Corpuscular Volume 93.3 FL (87-102); Monocytes # 0.9 10*3/uL (0.11-0.8); Monocytes % 5.2 % (1.7-12.7); Neutrophils # 15.7 10*3/uL (1.4-7.4); Neutrophils % 88.4 % (38.7-73.9); Platelet Count 186 T/CUMM (130-400); Red Blood Count 3.41 MC/CUMM (3.8-5.5); Red Cell Distribution Width 14.6 % (9.3-17.3); White Blood Count 17.8 T/CUMM (4-12)
[2017-06-02] MEDS: PHENYTOIN 100 MG/2 ML VIAL IV SCH ×3 (06:18→22:40)
[2017-06-02 06:44] LABS: Calcium 8.1 MG/DL (8.5-10.1); Magnesium 2.5 MG/DL (1.8-2.4); Osmolality,Calculated 304.4 MOS/KG (273-304); Potassium 4.1 MMOL/L (3.5-5.1)
[2017-06-02 06:47] LABS: Calcium 8.2 MG/DL (8.5-10.1); Osmolality,Calculated 301.6 MOS/KG (273-304); Potassium 4.1 MMOL/L (3.5-5.1); Prealbumin 21.2 MG/DL (20-40)
[2017-06-02] MEDS: PROPOFOL 1,000 MG/100 ML BOTTLE IV SCH ×3 (07:05→22:00)
--- NOTE | 2017-06-02 07:43 | XRay Report ---
History is ventilator management Comparison 05/31/2017 The heart is enlarged with pacemaker present. ET tube tip is at T5-T6, 2 cm above the sony there is slight increasing discoid atelectasis in the lung bases. Minimal more focal retrocardiac opacity in the left base is slightly improved. Impression: Minimal increasing basilar atelectasis PROCEDURE INTERPRETED AT [facility] DEPARTMENT OF RADIOLOGY Final Report Signed by: Dr. Barb Martinez
--- NOTE | 2017-06-02 08:44 | Hospitalist Progress Note ---
Assessment and Plan (1) Anoxic brain injury Status: Acute Assessment and plan: Thanks so much to Dr. Thrasher, patient showing improvement Current Visit: Yes (2) Seizure Status: Acute Assessment and plan: seizures appear controlled with keppra and dilantin. Repeat EEG today Current Visit: Yes (3) LLL pneumonia Status: Acute Assessment and plan: s/p bronch by Dr. Garcia, cont rocephin and azithromycin. Current Visit: Yes (4) Respiratory arrest Status: Acute Assessment and plan: respiratory arrest in the ER, now intubated Current Visit: Yes (5) Cardiac arrest Status: Acute Assessment and plan: secondary to her respiratory arrest, mild elevation of troponins due to cpr, no evidence of acute UT Current Visit: Yes (6) Hypothyroidism Status: Acute Assessment and plan: hold levothyroxine and recheck T4 in two days. Current Visit: Yes (7) Chronic back pain Status: Chronic Assessment and plan: hold all pain meds Current Visit: Yes (8) PAF (paroxysmal atrial fibrillation) Status: Chronic Assessment and plan: cont flecanide Current Visit: Yes (9) CKD (chronic kidney disease) stage 4, GFR 15-29 ml/min Status: Chronic Assessment and plan: mild imrpovement with fluids, still not acute, CKD stage 3. Current Visit: Yes (10) Hypertension Status: Chronic Assessment and plan: BP better today Current Visit: Yes Hospitalist: Subjective Interval history: patient has not started seizing after stopping the diprivan. Will update the family and talk to them about ltach. Exam - Constitutional Vitals: Period Temp Pulse Resp BP Sys/Hoff Pulse Ox Last 24 Hr 96.9 F-98.5 F 60-76 10-24 106-159/53-70 100-100 Exam: Heart Rate-[RRR] Lungs-[clear] GI-[+bs soft, NT] Ext-[anasarca] Neuro no spontaneous movement, pupils responsive, withdraws to pain, but does not follow commands psych unable to evaluate due to poor neurological status General [no acute distress] Results - Labs CBC & BMP: 06/02/17 05:10 06/02/17 05:10 Lab Results: I have reviewed the past 24 hour labs
[2017-06-02] MEDS: LANSOPRAZOLE ODT 30 MG TABLET NG SCH (09:00)
[2017-06-02] MEDS: ASPIRIN EC 81 MG TABLET PO SCH (09:00)
[2017-06-02] MEDS: amLODIPine 5 MG TABLET PO SCH (09:00)
[2017-06-02] MEDS ORDERED: PHENYTOIN INJ 500 MG in SODIUM CHLORIDE 0.9% 100 ML IV ONE (09:30)
[2017-06-02] MEDS: hydrALAZINE 20 MG/1 ML VIAL IV PRN (09:30)
[2017-06-02] MEDS ORDERED: POLYVINYL ALCOHOL 1.4% OPH SOLN 15 ML BOTTLE BOTH EYES PRN (11:23)
--- NOTE | 2017-06-02 11:23 | Pulmonology Progress Note ---
Pulmonary - PN: Subj Interval history: Mrs. Regalado is an 81-year-old white female who we saw in initial pulmonary consultation on 05/31/2017. At that time, our impressions were: Impression. 1. Cardiopulmonary arrest requiring intubation mechanical ventilation. Etiology is undetermined. 2. Recent severe back pain secondary to herniated nucleus pulposus 3. Hypoxemia out of proportion to what I would expect 4. Acute left lower lung infiltrate post intubation. Suspect that this will be an aspiration pneumonia with the potential for bacterial superinfection 5. Probable acute central nervous system hypoxic and an ischemic injury with resultant status epilepticus 6. Chronic renal failure. 7. History of asthma 8. History of high blood pressure 9. Hypothyroidism. 10. Hyperlipidemia. 11. See past history 12. Abnormal liver function 06/01/2017. The patient was seen today along with her nurse, Mario. Patient's chest x-ray is improving. Fiberoptic bronchoscopy was done earlier today. This showed acute aspiration with bibasilar erosive probable nonstenotic bronchitis and retained secretions. Please see the bronchoscopy report for more information. We have made some slight adjustments to the patient's ventilator today. We have changed from IMV to an assist control of 10. FiO2 has been decreased to 50% and we are going to proceed with CPAP trials. We have discussed the case with Dr. Digna Burgos and have coordinated our care. Medications have been reviewed. We made no changes today. Labs been reviewed. White count is 19,700 with 89.9% segs; H&H 11.6/34.5; platelet count 172,000; creatinine has improved to 1.80, BUN 33, sodium 142, potassium 4.3, magnesium 2.4 ABGs this morning on an FiO2 of 70% and mechanical ventilation showed a pH of 7.459, PCO2 31.3, PO2 292.0, bicarb 23.7, and oxygen saturation 99.5% 06/02/2017. Chest x-ray is stable with some mild bibasilar atelectasis. Bronchoalveolar lavages are negative so far. CBC is stable. ABGs on mechanical ventilation FiO2 50% better with a pH of 7.42, PCO2 35, PO2 of 193 and a bicarb of 23.4. Electrolytes are normal. Creatinine is dropped from 1.8- 1.5 with a BUN of 41. Patient has not tolerated weaning trials. Exam (Progress Note) - Constitutional Vitals: Period Temp Pulse Resp BP Sys/Hoff Pulse Ox Last 24 Hr 97.6 F-98.7 F 60-85 10- 110-200/45-74 100-100 Exam: Face. Symmetrical Neck. No meningismus Chest with mild large airway congestion that improved post bronchoscopy Heart with a slightly lateral PMI but no gallop Abdomen is nondistended and nontender; rare bowel sounds Lower extremities with nothing to suggest acute deep venous thrombophlebitis Psychiatric and neurologic unable to be obtained secondary to sedation and mechanical ventilation. Seizures coming under better control. Plan: 06/02/2017. 1. Change IMV to assist control of 10. 2. Decrease FiO2 to 50%. 3. Start CPAP trials. 4. Follow-up bronchoscopy results when available. 5. Daily chest x-ray and ABGs. 6. See orders. Exam (Progress Note) - Constitutional Vitals: Period Temp Pulse Resp BP Sys/Hoff Pulse Ox Last 24 Hr 96.9 F-98.5 F 60-78 10- 106-161/52-72 100-100 Results - Labs CBC & BMP: 06/03/17 04:43 06/03/17 04:43
[2017-06-02] MEDS: AZITHROMYCIN 40 MG/ML 15 ML/BOTTLE PO SCH (12:00)
--- NOTE | 2017-06-02 13:17 | Pathology Report from [facility] ---
[facility] [place] # : [id number] PATIENT NAME : Eliza Regalado ORDERING DR : RUSSELL TAYLOR MD CLINICAL HX: Aspiration POST-OP DX: Same SPECIMEN INFO: Washing,Bronchial,LOUIE - 20 mls pinkish red, cloudy with yellow and white particles CLASS: II CLASS COMMENTS: Reactive bronchial cells, inflammationCELL BLOCK: Same CLASS LEGEND: CLASS 0 Material inadequate for diagnosis because of (see comment) CLASS I Absence of atypical or abnormal cells CLASS II Atypical Cytology but no evidence of malignancy CLASS III Cytology suggestive of but not conclusive for malignancy CLASS IV Cytology strongly suggestive of malignancy CLASS V Cytology conclusive for malignancy COLLECTED DATE: 06/01/2017 [facility] REPORT DATE: 06/02/2017 ELECTRONICALLY SIGNED BY: Abel Talley M.D. 06/02/2017 - 9:41:14 [facility]TDD
--- NOTE | 2017-06-02 15:27 | Neurology Progress Note ---
Neurology - PN : Subjective Interval history: Apparently patient is still having some seizure-like activity. Repeat EEG was done this morning. No clinical jerking motion seen Exam (Progress Note) - Constitutional Vitals: Period Temp Pulse Resp BP Sys/Hoff Pulse Ox Last 24 Hr 96.9 F-98.7 F 60-78 10-24 96-161/39-72 100-100 Exam: GENERAL: Patient is in no acute distress. NECK: Neck is supple. There is no JVD. No carotid bruits present. No thyroid masses. CVS: First and second heart sounds are normal. There is no S3 present. Regular rate and rhythm. RESPIRATORY: Lungs are clear to auscultation without any rales or rhonchi. ABDOMEN: Soft and non-tender. Bowel sounds are present. There is no hepatosplenomegaly. EXT: There is no palpable edema. Peripheral pulses are present. Skin: No rashes Central Nervous system: General: Unresponsive Speech: None Comprehension: None on vent Facial expressions: Normal Cranial Nerves: Left pupil is dilated but reactive, right pupil is nonreactive but irregular could be surgical. Doll's head eye movements are negative. No facial asymmetry is seen Motor: Bulk and Tone is normal. Strength cannot be assessed Sensory: Cannot be assessed Reflexes: 1+ and symmetrical Cerebellar function: Cannot be assessed Toes: Equivocal Gait: Cannot be assessed Assessment: Hypoxic anoxic brain injury Status epilepticus Recommendations: Continue Keppra and Dilantin at the same Add Depacon 500 mg IV every 8 Prognosis is poor Results - Labs CBC & BMP: 06/02/17 05:10 06/02/17 05:10 Assessment and Plan (1) Status epilepticus Status: Acute Assessment and plan: Continue Keppra at the same dose Add Dilantin Discussed at length with the family again regarding disease process, treatment options and prognosis Prognosis: Extremely poor Current Visit: Yes
[2017-06-02] MEDS: VALPROIC ACID INJ 500 MG in SODIUM CHLORIDE 0.9% 100 ML IV SCH ×2 (16:30→22:40)
[2017-06-02] MEDS ORDERED: DEXAMETHASONE 4 MG/1 ML VIAL IV SCH (17:30)
[2017-06-02] MEDS: ENOXAPARIN 30 MG/0.3 ML SYRINGE SUBCUT SCH (18:00)
[2017-06-02] MEDS: cefTRIAXone 1,000 MG in SODIUM CHLORIDE 0.9% 100 ML IV SCH (19:30)
[2017-06-02] MEDS: LATANOPROST 0.005% OPH SOLN 2.5 ML BOTTLE BOTH EYES SCH (21:00)
[2017-06-03] MEDS: INSULIN REGULAR 100 UNIT/ML SUBCUT SCH ×3 (00:14→12:38)
[2017-06-03] MEDS: FLECAINIDE 50 MG TABLET PO SCH (02:43)
[2017-06-03 03:25] LABS: ABG Base Excess -1.5 MMOL/L (-2.5-2.5); ABG HCO3 21.8 MMOL/L (20-26); ABG Oxygen Saturation 98.8 % (95-100); ABG PCO2 32.1 MM HG (35-48); ABG PO2 216.7 MM HG (80-95); ABG TCO2 22.8 MMOL/L (23-27)
[2017-06-03 05:26] LABS: Basophils % 0.1 % (0.0-0.8); Hemoglobin 10.1 GM/DL (12.0-16.0); Immature Granulocytes % 1.5 %; Immature Granulocytes Absolute 0.25 #; Lymphocytes # 2.2 10*3/uL (1.4-4.0); Lymphocytes % 13.1 % (21.3-54.2); Mean Corpuscular HGB Conc 33.7 GM/DL (32-36); Mean Corpuscular Hemoglobin 32 PG (27-34); Mean Platelet Volume 11.2 FL (9.6-12.0); Monocytes # 1.1 10*3/uL (0.11-0.8); Monocytes % 6.7 % (1.7-12.7); Neutrophils % 78.6 % (38.7-73.9); Platelet Count 181 T/CUMM (130-400); Red Blood Count 3.19 MC/CUMM (3.8-5.5); Red Cell Distribution Width 14.6 % (9.3-17.3); White Blood Count 16.5 T/CUMM (4-12)
[2017-06-03] MEDS: PROPOFOL 1,000 MG/100 ML BOTTLE IV SCH ×2 (05:59→14:30)
[2017-06-03 06:14] LABS: Magnesium 2.7 MG/DL (1.8-2.4); Osmolality,Calculated 301.6 MOS/KG (273-304); Potassium 4.1 MMOL/L (3.5-5.1)
[2017-06-03] MEDS: PHENYTOIN 100 MG/2 ML VIAL IV SCH ×3 (06:41→23:30)
[2017-06-03] MEDS: VALPROIC ACID INJ 500 MG in SODIUM CHLORIDE 0.9% 100 ML IV SCH ×3 (06:45→23:30)
--- NOTE | 2017-06-03 08:03 | XRay Report ---
History: Patient on ventilator Date: 06/03/2017 Study: Chest x-ray AP portable Comparison exam: 06/02/2017 The endotracheal and nasogastric tubes remain in generally satisfactory position. There is stable cardiomegaly. The mediastinal contours are unchanged. The pulmonary vasculature is not engorged. There are some atelectatic changes in the lung bases. There is no new or worsening infiltrate. There is a probable small left pleural effusion. A left subclavian dual-lead transvenous pacemaker is present and is intact. The osseous structures are unchanged. Impression: Minimally improved aeration in the right lung base. Otherwise unchanged PROCEDURE INTERPRETED AT [facility] DEPARTMENT OF RADIOLOGY Final Report Signed by: Dr. Yvonne Hamilton
[2017-06-03] MEDS: amLODIPine 5 MG TABLET PO SCH (09:51)
[2017-06-03] MEDS: LANSOPRAZOLE ODT 30 MG TABLET NG SCH (09:51)
[2017-06-03] MEDS: ASPIRIN EC 81 MG TABLET PO SCH (09:52)
--- NOTE | 2017-06-03 10:12 | Pulmonology Progress Note ---
Exam (Progress Note) - Constitutional Vitals: Period Temp Pulse Resp BP Sys/Hoff Pulse Ox Last 24 Hr 97.6 F-99.0 F 60-76 1-20 92-168/39-76 99-100 Results - Labs CBC & BMP: 06/03/17 04:43 06/03/17 04:43
[2017-06-03] MEDS: AZITHROMYCIN 40 MG/ML 15 ML/BOTTLE PO SCH (10:19)
--- NOTE | 2017-06-03 10:22 | Pulmonology Progress Note ---
Pulmonary - PN: Subj Interval history: Mrs. Regalado is an 81-year-old white female who we saw in initial pulmonary consultation on 05/31/2017. At that time, our impressions were: Impression. 1. Cardiopulmonary arrest requiring intubation mechanical ventilation. Etiology is undetermined. 2. Recent severe back pain secondary to herniated nucleus pulposus 3. Hypoxemia out of proportion to what I would expect 4. Acute left lower lung infiltrate post intubation. Suspect that this will be an aspiration pneumonia with the potential for bacterial superinfection 5. Probable acute central nervous system hypoxic and an ischemic injury with resultant status epilepticus 6. Chronic renal failure. 7. History of asthma 8. History of high blood pressure 9. Hypothyroidism. 10. Hyperlipidemia. 11. See past history 12. Abnormal liver function 06/01/2017. The patient was seen today along with her nurse, Mario. Patient's chest x-ray is improving. Fiberoptic bronchoscopy was done earlier today. This showed acute aspiration with bibasilar erosive probable nonstenotic bronchitis and retained secretions. Please see the bronchoscopy report for more information. We have made some slight adjustments to the patient's ventilator today. We have changed from IMV to an assist control of 10. FiO2 has been decreased to 50% and we are going to proceed with CPAP trials. We have discussed the case with Dr. Digna Burgos and have coordinated our care. Medications have been reviewed. We made no changes today. Labs been reviewed. White count is 19,700 with 89.9% segs; H&H 11.6/34.5; platelet count 172,000; creatinine has improved to 1.80, BUN 33, sodium 142, potassium 4.3, magnesium 2.4 ABGs this morning on an FiO2 of 70% and mechanical ventilation showed a pH of 7.459, PCO2 31.3, PO2 292.0, bicarb 23.7, and oxygen saturation 99.5% 06/02/2017. Chest x-ray is stable with some mild bibasilar atelectasis. Bronchoalveolar lavages are negative so far. CBC is stable. ABGs on mechanical ventilation FiO2 50% better with a pH of 7.42, PCO2 35, PO2 of 193 and a bicarb of 23.4. Electrolytes are normal. Creatinine is dropped from 1.8- 1.5 with a BUN of 41. Patient has not tolerated weaning trials. 06/03/2017. There is an 81-year-old white female who had a cardiopulmonary arrest on 05/31/2017 while she was in the emergency room. She has had status epilepticus since then. The seizure appears to be under better control. She is being seen by neurology. This patient appears to have a diffuse central nervous system injury and she has not woken up. She had a left lower lung infiltrate. Aspiration was suspected. She was evaluated with fiberoptic bronchoscopy and there were retained secretions and a very small bibasilar atelectasis injury. See bronchoscopy report. There are no positive cultures. Weaning trials have not been successful. We will retry today. Her ABGs on mechanical ventilation and FiO2 of 50% shows a pH 7.45, PCO2 32.1, PO2 of 210.7 and a bicarb of 22. FiO2 is been decreased to 40%. Electrolytes are normal. Creatinine is gradually fallen from 2.40-1.40 with a BUN of 43. Exam (Progress Note) - Constitutional Vitals: Period Temp Pulse Resp BP Sys/Hoff Pulse Ox Last 24 Hr 97.6 F-98.7 F 60-85 10-22 110-200/45-74 100-100 Exam: Face. Symmetrical. No edema of the lips or tongue. Neck. No meningismus Chest with mild large airway congestion that improved post bronchoscopy Heart with a slightly lateral PMI but no gallop Abdomen is nondistended and nontender; rare bowel sounds Lower extremities with nothing to suggest acute deep venous thrombophlebitis Psychiatric and neurologic unable to be obtained secondary to sedation and mechanical ventilation. Seizures coming under better control. Plan: 06/02/2017. 1. Change IMV to assist control of 10. 2. Decrease FiO2 to 50%. 3. Start CPAP trials. 4. Follow-up bronchoscopy results when available. 5. Daily chest x-ray and ABGs. 6. See orders. 06/03/2017 1. See my note above 2. Retry weaning trials. Physical therapy protocol. #3 daily chest x-ray ABGs and lab. Exam (Progress Note) - Constitutional Vitals: Period Temp Pulse Resp BP Sys/Hoff Pulse Ox Last 24 Hr 97.6 F-99.0 F 60-76 1-20 92-168/39-76 99-100 Results - Labs CBC & BMP: 06/03/17 04:43 06/03/17 04:43
[2017-06-03] MEDS ORDERED: MORPHINE 2 MG/1 ML SYRINGE IV ONE ×2 (13:28→16:19)
[2017-06-03] MEDS ORDERED: fentaNYL 25 MCG/HR PATCH TRANSDERM SCH (13:30)
[2017-06-03] MEDS ORDERED: LORazepam 2 MG/1 ML VIAL IV PRN (13:44)
--- NOTE | 2017-06-03 13:49 | Hospitalist Progress Note ---
Assessment and Plan (1) Anoxic brain injury Status: Acute Assessment and plan: comfort end of life care. Ativan, morphine and fentanyl patch Current Visit: Yes (2) Seizure Status: Acute Assessment and plan: convulsing and posturing immediately after turning off the diprivan Current Visit: Yes (3) Respiratory arrest Status: Acute Assessment and plan: respiratory arrest Current Visit: Yes (4) Cardiac arrest Status: Acute Current Visit: Yes (5) Chronic back pain Status: Chronic Assessment and plan: fentanyl patch 25 mcg Current Visit: Yes Hospitalist: Subjective Interval history: Family was in the room with me and we have decided to turn off the diprivan to see what kind of response we would get. Patient began convulsing and biting her tongue and posturing extremely bad with her bilateral UE. She had no awareness of her surroundings no response to the family's words. Patient was placed back on the diprivan. She was given 2 mg of morphine IV and placed on a fentanyl patch 25 mcg. In 2 hours giving the fentanyl patch adequate time to work, I will give her morphine and Ativan, turn off the diprivan and withdrawal the vent at the family's request. NG tube will be removed now. Exam - Constitutional Vitals: Period Temp Pulse Resp BP Sys/Hoff Pulse Ox Last 24 Hr 97.6 F-99.0 F 60-76 1-17 92-168/51-76 99-100 Exam: 8:30 am Examined patient at Heart Rate-RRR] Lungs-[clear] GI-[+bs soft, NT] Ext-[anasarca] Neuro no spontaneous movement, pupils responsive asymmetrical, withdraws to pain , but does not follow commands psych unable to evaluate due to poor neurological status General [no acute distress] 1345 HR Tachy neuro convulsing and posturing of UE, biting her tongue. Results - Labs CBC & BMP: 06/03/17 04:43 06/03/17 04:43 Lab Results: I have reviewed the past 24 hour labs
--- NOTE | 2017-06-03 14:09 | Electroencephalogram ---
DATE OF STUDY: HISTORY: An 81-year-old female with a history of seizures. INTRODUCTION: A digital EEG was performed using the standard 10/20 system of electrode placement wit h one channel of EKG monitoring. Photic stimulation was not performed. DESCRIPTION OF RECORD: As the tracings open, the background consists of generalized spike and wave d ischarges, which lasted throughout the record. The record does not activate upon patient stimulation . Heart rate 56 beats per minute. IMPRESSION: ABNORMAL ELECTROENCEPHALOGRAM DUE TO GENERALIZED SPIKE AND WAVE DISCHARGES. CLINICAL CORRELATION: This record is supportive of subclinical status epilepticus. Clinical correla tion suggested.
--- NOTE | 2017-06-03 15:20 | Neurology Progress Note ---
Neurology - PN : Subjective Interval history: Patient is coughing and has positive gag reflex. Pupils are equally reactive to light. Still having subclinical seizures though went to turn off sedation. Family has decided to withdraw support and continue comfort measures only Exam (Progress Note) - Constitutional Vitals: Period Temp Pulse Resp BP Sys/Hoff Pulse Ox Last 24 Hr 97.6 F-99.0 F 60-69 1-17 92-168/51-76 99-100 Exam: GENERAL: Patient is in no acute distress. NECK: Neck is supple. There is no JVD. No carotid bruits present. No thyroid masses. CVS: First and second heart sounds are normal. There is no S3 present. Regular rate and rhythm. RESPIRATORY: Lungs are clear to auscultation without any rales or rhonchi. ABDOMEN: Soft and non-tender. Bowel sounds are present. There is no hepatosplenomegaly. EXT: There is no palpable edema. Peripheral pulses are present. Skin: No rashes Central Nervous system: General: Unresponsive Speech: None Comprehension: None on vent Facial expressions: Normal Cranial Nerves: Left pupil is dilated but reactive, right pupil is nonreactive but irregular could be surgical. Doll's head eye movements are negative. No facial asymmetry is seen Motor: Bulk and Tone is normal. Strength cannot be assessed Sensory: Cannot be assessed Reflexes: 1+ and symmetrical Cerebellar function: Cannot be assessed Toes: Equivocal Gait: Cannot be assessed Assessment: Hypoxic anoxic brain injury Status epilepticus Recommendations: Continue Keppra, Depacon and Dilantin at the same dose as per family's request Continue comfort measures Sign off please call as needed Results - Labs CBC & BMP: 06/03/17 04:43 06/03/17 04:43 Assessment and Plan (1) Status epilepticus Status: Acute Assessment and plan: Continue Keppra at the same dose Add Dilantin Discussed at length with the family again regarding disease process, treatment options and prognosis Prognosis: Extremely poor Current Visit: Yes
[2017-06-03] MEDS: LORazepam 2 MG/1 ML VIAL IV PRN ×5 (15:55→21:38)
[2017-06-03] MEDS: MORPHINE 2 MG/1 ML SYRINGE IV PRN ×6 (16:01→21:39)
[2017-06-04] MEDS: MORPHINE 2 MG/1 ML SYRINGE IV PRN ×6 (05:36→17:59)
[2017-06-04] MEDS: LORazepam 2 MG/1 ML VIAL IV PRN ×5 (05:41→11:46)
[2017-06-04] MEDS: VALPROIC ACID INJ 500 MG in SODIUM CHLORIDE 0.9% 100 ML IV SCH ×3 (06:35→23:10)
[2017-06-04] MEDS: PHENYTOIN 100 MG/2 ML VIAL IV SCH ×3 (06:40→23:06)
--- NOTE | 2017-06-04 07:33 | Event Note ---
Family decided to withdrawal care and keep her comfortable. She is off the ventilator now. She is status post arrest and is obtunded. Family is present with the patient. Please call if we can help.
[2017-06-04] MEDS ORDERED: ATROPINE 1 % OPH SOLN 5 ML BOTTLE SL SCH (08:00)
[2017-06-04] MEDS: fentaNYL 50 MCG/HR PATCH TRANSDERM SCH (08:58)
[2017-06-04] MEDS: ATROPINE 1 % OPH SOLN 5 ML BOTTLE SL SCH ×8 (10:04→23:18)
--- NOTE | 2017-06-04 11:34 | Hospitalist Progress Note ---
Assessment and Plan (1) Anoxic brain injury Status: Acute Assessment and plan: comfort end of life care. Ativan, morphine and increased fentanyl patch 50 mcg Current Visit: Yes (2) Seizure Status: Acute Assessment and plan: cont ativan every 2 hour, cont dilantin, valproic acid and keppra Current Visit: Yes Hospitalist: Subjective Interval history: Patient is gurgling. We have started atropine drops for oral secretions. We will order guest tray for patient's . We have moved her up to fifth floor in order for her to have more room for the family. Her seizures and pain is controlled with morphine and Ativan. We will continue seizure medicines to prevent further seizures. Family has been happy with her care. I explained to them that she would not be on a warehouse logistics coordinator now that she has been changed to hospice comfort care. Due to the amount of morphine required overnight we will increase her fentanyl patch from 25 mcg to 50 mcg. Exam - Constitutional Vitals: Period Temp Pulse Resp BP Sys/Hoff Pulse Ox Last 24 Hr 97.1 F-98.0 F 55-75 8-20 99-153/51-75 96-100 Exam: Heart Rate-RRR] Lungs-[crackles] GI-[+bs soft, NT] Ext-[anasarca] Neuro unresponsive Results - Labs CBC & BMP: 06/03/17 04:43 06/03/17 04:43 Lab Results: I have reviewed the past 24 hour labs
[2017-06-04] MEDS: SCOPOLAMINE 1.5 MG PATCH TRANSDERM SCH (13:21)
[2017-06-05] MEDS: ATROPINE 1 % OPH SOLN 5 ML BOTTLE SL SCH ×12 (01:24→23:02)
[2017-06-05] MEDS: PHENYTOIN 100 MG/2 ML VIAL IV SCH ×3 (06:19→22:57)
[2017-06-05] MEDS: MORPHINE 2 MG/1 ML SYRINGE IV PRN ×2 (08:09→15:40)
[2017-06-05] MEDS: VALPROIC ACID INJ 500 MG in SODIUM CHLORIDE 0.9% 100 ML IV SCH ×3 (08:10→23:02)
--- NOTE | 2017-06-05 12:10 | Hospitalist Progress Note ---
Assessment and Plan (1) Anoxic brain injury Status: Acute Assessment and plan: Continue hospice using Ativan and morphine prn, atropine drops and scopolamine patch for secretions continue fentanyl patch 50 mcg Current Visit: Yes (2) Seizure Status: Acute Assessment and plan: cont ativan every 2 hour prn, cont dilantin, valproic acid and keppra. no seizures noted since withdrawal of care. Current Visit: Yes Hospitalist: Subjective Interval history: Patient resting peacefully today. Sister at bedside. Family is holding strong. Patient is well controlled on the fentanyl patch. Scopolamine patch seems to be working better than atropine drops for her gurgling. Family wanted patient turned facing the other side. I did inform the family that I do not like to turn patients who are on hospice as it causes him extreme discomfort near the end. Exam - Constitutional Vitals: Period Temp Pulse Resp BP Sys/Hoff Pulse Ox Last 24 Hr 98 F-99.8 F 62-78 10-17 100-116/50-61 90-94 Exam: Heart Rate-RRR] Lungs-[crackles] GI-[+bs soft, NT] Ext-[anasarca worsening] Neuro unresponsive Results - Labs CBC & BMP: 06/03/17 04:43 06/03/17 04:43
[2017-06-05] MEDS: LORazepam 2 MG/1 ML VIAL IV PRN (23:20)
[2017-06-06] MEDS: ATROPINE 1 % OPH SOLN 5 ML BOTTLE SL SCH ×12 (01:53→23:06)
[2017-06-06] MEDS: PHENYTOIN 100 MG/2 ML VIAL IV SCH ×3 (06:09→23:00)
--- NOTE | 2017-06-06 07:02 | XRay Report ---
History: Post intubation. Cardiac arrest Date: 05/30/2017 at 4:14 PM Study: Chest x-ray AP portable Comparison exam: April 03, 2017 There is mild cardiomegaly. The mediastinal contours are unchanged. The pulmonary vasculature is not engorged. There is some minor strandy subsegmental atelectasis in the left lower lobe. The lungs and pleural spaces are otherwise clear. Endotracheal tube tip overlies the trachea. A left subclavian multiple lead transvenous pacemaker is stable in appearance. Osseous structures are unchanged. Impression: The endotracheal tube is well-positioned. Mild strandy subsegmental atelectasis noted in the left lower lobe. PROCEDURE INTERPRETED AT [facility] DEPARTMENT OF RADIOLOGY Final Report Signed by: Dr. Yvonne Hamilton
[2017-06-06] MEDS: MORPHINE 2 MG/1 ML SYRINGE IV PRN ×2 (09:35→20:57)
[2017-06-06] MEDS: VALPROIC ACID INJ 500 MG in SODIUM CHLORIDE 0.9% 100 ML IV SCH ×3 (09:45→23:01)
--- NOTE | 2017-06-06 10:25 | Pulmonology Progress Note ---
Pulmonary - PN: Subj Interval history: Comfort measures are in place. Patient is extubated. I will sign off. Reconsult me if needed. Exam (Progress Note) - Constitutional Vitals: Period Temp Pulse Resp BP Sys/Hoff Pulse Ox Last 24 Hr 98.6 F-99.6 F 68-90 12-19 118-167/52-76 87-92 Results - Labs CBC & BMP: 06/03/17 04:43 06/03/17 04:43
--- NOTE | 2017-06-06 11:39 | Hospitalist Progress Note ---
Assessment and Plan (1) Seizure Status: Acute Assessment and plan: Continue dilantin, valproic acid and keppra Current Visit: Yes (2) Anoxic brain injury Status: Acute Assessment and plan: Hospice measures in effect Ativan and morphine prn atropine drops and scopolamine patch Current Visit: Yes Hospitalist: Subjective Interval history: Patient unresponsive, appears comfortable. Family at bedside. Working on hospice placement. Exam - Constitutional Vitals: Period Temp Pulse Resp BP Sys/Hoff Pulse Ox Last 24 Hr 98.6 F-99.6 F 68-90 12-19 118-167/52-76 87-92 General appearance: normal weight - Head Head exam: Present: normocephalic, atraumatic - Eye Eye exam: Present: EOMI - ENT ENT exam: Present: normal exam - Neck Neck exam: Present: normal inspection - Respiratory Respiratory exam: Present: clear to auscultation bilaterally. Absent: rhonchi, wheezes - Cardiovascular Cardiovascular exam: Present: regular rate and rhythm - GI/Abdominal GI/Abdominal exam: Present: normal bowel sounds, soft - Extremities Exam Extremities exam: Present: edema - Neurological Exam Neurological exam: Present: other (asleep) - Skin Skin exam: Present: warm, intact Results - Labs CBC & BMP: 06/03/17 04:43 06/03/17 04:43
[2017-06-07] MEDS: ATROPINE 1 % OPH SOLN 5 ML BOTTLE SL SCH ×6 (02:20→11:38)
[2017-06-07] MEDS: PHENYTOIN 100 MG/2 ML VIAL IV SCH (06:28)
--- NOTE | 2017-06-07 08:21 | Discharge Summary ---
<Deniz Rodriguez - Last Filed: 06/07/17 08:27> Hospital Course - Hospital Course Hospital Course: This is an 81-year-old female that presented to the [facility] at [facility] on May 30, 2017 for the evaluation of back pain. The patient has a medical history significant for hypertension, coronary artery disease, hypothyroidism, asthma, bowel obstruction, arthritis, skin cancer, peripheral neuropathy, hemorrhoids, and colon polyps. Patient has a surgical history significant for pacemaker placement, cataract removal, ocular implants, appendectomy, colonoscopy, EGD, hysterectomy, and neck and lower back surgery. The patient reported the onset of symptoms 3 days prior to presentation. Although the patient has chronic lower back pain, the patient reported that the duration and quality of pain increased in recent days. The patient sought medical attention at her primary care doctor Dr. Niko Armijo a week prior to presentation. She was ordered an MRI on May 27, 2017 and was referred to a neurosurgeon for further evaluation. She was given analgesics by Dr. Armijo for home use however the patient reported that the medication was ineffective. The patient was seen and assessed in the [facility]. The MRI report was reviewed. Due to the severity of the patient's spinal disease, IM analgesics and steroids were ordered. The patient spoke with the staff regarding a possible transfer to the [facility] for neurosurgery evaluation. The patient voiced concerns regarding the inability to be able to return home and requested the [facility] be contacted for evaluation for possible transfer there. After the administration of the IM analgesics and steroids, the patient continued to experience pain. visitor services specialist consultation was requested to evaluate the patient's home situation. The social work therapist presented to the patient's room and immediately called for assistance. The nursing staff arrived into the room the patient was found pulseless and apneic. Her friend was present at bedside who assumed that the patient was sleeping. CHACORTA WALSH was called at that time and ACS was initiated. The patient was subsequently transferred to the main emergency room for further stabilization and treatment. The patient was intubated and placed on mechanical ventilation. CT chest was ordered and essentially unremarkable for any acute pulmonary embolic disease however, left lower lobe edema and infiltrate was noted. The patient was subsequently admitted to [facility] to the hospitalist service for continuation of care. The patient was transferred to the critical care unit for further evaluation. The patient was noted to be absent of any spontaneous movement and failed to withdraw from pain. A pulmonary and neurology consultation was requested. CT scan was performed on the morning of May 31, 2017 which reported mild interval progression of ventricular prominence out of proportion to the amount of atrophy, central atrophy versus NPH, mild patchy nonspecific white matter low density most frequently associated with the sequelae of microvascular disease. Chest x-ray was also ordered on the morning of May 30, 2017 which reported worsening left lower lobe consolidation felt to be mostly atelectasis. The patient was evaluated by neurology. An electroencephalogram was ordered on May 31, 2017 which reported generalized seizure activity and burst suppression pattern. The patient was then started on anti-seizure medications. On June 01, 2017, the patient underwent diagnostic and therapeutic fiberoptic bronchoscopy with lavage under the direction of Dr. Jordan Garcia; which reported acute aspiration with bibasilar erosive friable nonstenotic bronchitis, retained secretions. At that time the patient's endotracheal tube was repositioned. The patient continued to experience seizure activity despite the use of multiple antiseizure agents. The patient continued to be noted absent of any spontaneous movement and failure to withdraw from painful stimuli. The patient' s family was briefed regarding the patient's status. On June 04, 2017 the family decided to withdraw care and place the patient on comfort measures only. Today, the patient will be discharged to [facility] for continuation of care. Discharge Plan - Discharge Data Disposition: Hospice - Medical Facility - Discharge Medications New Atropine 1 % Oph Soln [Isopto Atropine 1%] 2 drop SL Q2H bottle LORazepam INJ [Ativan Inj] 2 mg IV Q5M PRN vial PRN Reason: Agitation Morphine Inj 2 mg IV Q5M PRN syringe PRN Reason: Pain Severe (8-10) Scopolamine 1.5 mg Patch [Transderm Scop 1.5 mg/72 hr Patch] 1 patch TRANSDERM Q3DAY patch Valproic Acid Inj [Depacon Inj] 500 mg IV Q8H vial levETIRAcetam INJ [Keppra Inj] 750 mg IV Q8H vial Phenytoin Inj [Dilantin Inj] 100 mg IV Q8H vial fentaNYL 50 MCG/HR PATCH [Duragesic 50 Patch] 1 patch TRANSDERM Q3DAY patch Discontinued Torsemide 40 mg PO QAM cloNIDine TAB [Catapres Tab] 0.1 mg PO BEDTIME Levothyroxine Tab [Synthroid Tab] 50 mcg PO DAILY@0700 Flecainide Acetate 50 mg PO Q12H Multivit-Min/FA/Lycopene/Lut [Centrum Silver Tablet] 1 each PO QAM Multivitamin (Ocuvite) [Ocuvite] 1 tablet PO QAM Cranberry Conc/C/Bacill Coag [Cranberry Tablet] 1 each PO QAM Gluc/Dwain-MSM#1/C/Mariano/Magdiel/Bor [Osteo Bi-Flex Caplet] 1 each PO QAM Flaxseed Oil 1,000 mg PO QAM Fish Oil/Dha/Epa [Fish Oil 1,200 mg Fish Oil] 1 each PO QAM Gabapentin 300 mg PO TID Aspirin [Ecotrin] 81 mg PO QAM Hydralazine HCl 100 mg PO BID Loratadine Tab [Claritin Tab] 10 mg PO QAM PRN PRN Reason: Allergy Symptoms Latanoprost [Latanoprost 0.005 % Oph Soln] 1 drop BOTH EYES BEDTIME Potassium Chloride 10 meq PO BEDTIME Glucosamine/D3/Boswellia Orquidea [Osteo Bi-Flex Tablet] 1 each PO QAM Cyclobenzaprine [Flexeril] 10 mg PO TID PRN PRN Reason: MUSCLE SPASMS Hydrocodone/Acetaminophen [[place] 10-325 Tablet] 1 each PO Q4H PRN PRN Reason: Pain Pantoprazole Sodium 40 mg PO BEDTIME - Follow Up or Referral - Forms/Instructions Exam - Constitutional Vitals: Period Temp Pulse Resp BP Sys/Hoff Pulse Ox Last 24 Hr 98.7 F-100.9 F 80-83 18-24 156-171/71-77 88-91 Discharge Results Procedures and tests throughout hospitalization: Pending Orders 06/01/17 Fungal Culture w/ Prep Stat 06/02/17 09:41 Blood Culture Stat Labs on day of discharge: Labs from last 24 hours 06/06/17 19:27 POC Glucose 156 H Preliminary micro results at discharge 06/01/17 Unknown Fungal Culture - Preliminary Bronchial Navi Lavage No Fungus isolated at 1 week 06/02/17 09:41 Blood Culture - Preliminary Blood No growth at 3 days 06/02/17 09:41 Blood Culture - Preliminary Blood No growth at 3 days DS: Provider Date of admission: 05/30/17 18:11 Primary care physician: Niko Armijo MD Attending physician on admission: Dougie Hood MD Consults: 05/30/17 19:19 Consult to Physician [CONS] Routine Comment: Consulting Provider: Consult to Specialist Group: Pulmonology When should Consulting Provider be notified: Now Consult to Physician [CONS] Routine Comment: cardiac arrest Consulting Provider: Jovan Edmonds 05/30/17 20:33 Consult to Case Mgmt/Social Srvs [CONS] Routine Reason for Case Mgmt/Social Srvs: Other Consult Comment: requests adavanced directive info Consult to Dietitian [CONS] Routine Reason for Dietitian: Dietary Consult 05/30/17 20:37 Consult to Pastoral Services [CONS] Routine Comment: Pastoral Screen: Request Radial Drill Operator Visit Pastoral Screen Source of Request: Family 05/31/17 09:23 Consult to Physician [CONS] Routine Comment: possible anoxic brain injury Consulting Provider: Hiro Thrasher Consulting Provider Notified: Yes When should Consulting Provider be notified: Now Consult to Specialist Group: Nephrology Person Notified: ROBIN Date Notified: 05/31/17 Time Notified: 09:40 05/31/17 09:24 Consult to Dietitian [CONS] Routine Reason for Dietitian: TF-Initiate/Manage 06/06/17 16:32 Consult to Case Mgmt/Social Srvs [CONS] Routine Reason for Case Mgmt/Social Srvs: Hospice Referral Discharging clinician: Deniz Rodriguez CNP <Teo Girard - Last Filed: 06/07/17 09:27> Hospital Course - Time spent with patient Time with patient DS: Less than 30 minutes (25) Diagnosis - Discharge Diagnosis (1) Seizure Status: Acute (2) Anoxic brain injury Status: Acute Discharge Plan - Discharge Data Condition at Discharge: Critical Exam - Constitutional General appearance: over weight - Head Head exam: Present: normocephalic, atraumatic - ENT ENT exam: Present: normal exam - Neck Neck exam: Present: normal inspection - Respiratory Respiratory exam: Present: clear to auscultation bilaterally - Cardiovascular Cardiovascular exam: Present: regular rate and rhythm - GI/Abdominal GI/Abdominal exam: Present: normal bowel sounds, soft - Extremities Exam Extremities exam: Present: edema - Back Exam Back exam: Present: normal inspection - Neurological Exam Neurological exam: Present: other (unrsponsive) - Psychiatric Psychiatric exam: Present: other (unresponsive) - Skin Skin exam: Present: warm, intact
[2017-06-07] MEDS ORDERED: ACETAMINOPHEN 650 MG SUPP RECTAL PRN (08:31)
[2017-06-07] MEDS: fentaNYL 50 MCG/HR PATCH TRANSDERM SCH (08:41)
[2017-06-07] MEDS: VALPROIC ACID INJ 500 MG in SODIUM CHLORIDE 0.9% 100 ML IV SCH (08:41)
[2017-06-07] MEDS: SCOPOLAMINE 1.5 MG PATCH TRANSDERM SCH (08:43)
[2017-06-07] MEDS: MORPHINE 2 MG/1 ML SYRINGE IV PRN ×2 (08:44→11:28)
[2017-06-07 11:14] VITALS: BP 183/76
--- NOTE | 2017-06-21 07:21 | Physician Query Form ---
CLICK EDIT DOCUMENT TO SELECT QUERY ANSWER --> OK --> SIGN Kimberly Traylor RN, CCDS Certified Clinical Fruit Or Nut Farmer W) [phone] (f) [phone] [email or web address] PROVIDERS: Make your selection(s) from the choices in EACH section by typing an "x" and enter comments in the comment section. Please use your independent medical judgment in providing your response. This request does not imply that any particular answer is desired or expected. CLINICAL INDICATORS: (Providers should not edit this section) Patient was Code Blue, intubated and mechanically ventilated, has CKD, Creatinine on admission was 2.4 with GFR 23, Creatinine improved to 1.4 with GFR 37 after stabilization and treatment with IVF. Clarify which of the following most accurately represents the patient's renal status: ( x) Acute kidney injury (non-traumatic) ( ) Acute renal failure with underlying Chronic Kidney Disease (CKD) ( ) Acute renal failure with necrosis ( ) tubular ( ) medullary ( ) cortical ( ) CKD only ( ) Other, please specify: ( ) Clinically unable to determine COMMENTS: PLEASE ALSO DOCUMENT RESPONSE IN PROGRESS NOTES AND/OR DISCHARGE SUMMARY Use of terms such as suspected, likely, or probable (associated with a specific diagnosis that is being evaluated, monitored, or treated as if it exists) are acceptable and can be restated in the discharge summary if not ruled out. MTDD
== END 2017-06-07 11:35 | disposition hospice, inpatient (51) | DRG 264 ==
LOC: EDUNIT# → N.ED 13:39 → N.ICU 18:11 → SUATTDRO 18:11 → N.ICU 19:23 → N.5E 06-04 10:57
PROVIDERS: ADMIT Internal Medicine; ATTEND Internal Medicine